=== PATIENT | female | born 1940 | race Caucasian/White ===

== ENCOUNTER → 2020-06-17 12:36 | Outpatient (CLI) | payer OTHER, SELFPAY ==
--- NOTE | ~2020-06-17 | MM_ITS ---
EXAMINATION: MM screening rubens BI w gabriela HISTORY: Screening mammogram TECHNIQUE: Craniocaudal and mediolateral oblique 3-D tomosynthesis images were obtained and synthetic 2-D images were generated. CAD analysis was submitted and interpreted. COMPARISON: 12/23/2018 bilateral digital screening mammogram BREAST PARENCHYMAL COMPOSITION: There are scattered areas of fibroglandular density FINDINGS: There is no evidence of suspicious mass, calcification, or architectural distortion to sugg est malignancy in either breast. There has been no suspicious interval change. IMPRESSION: 1. No mammographic evidence of malignancy. 2. Recommend routine screening mammography in one year. BI-RADS Category 1: Negative Reviewed, dictated and finalized at location A.
== END ==
PROVIDERS: PCP Internal Medicine; Visit Provider Internal Medicine
DX: Z12.31 Encounter for screening mammogram for malignant neoplasm of breast (principal)
CPT/HCPCS: 77063; 77067

== ENCOUNTER → 2020-08-09 09:45 | Outpatient (CLI) | payer OTHER, SELFPAY ==
--- NOTE | ~2020-08-09 | CT_ITS ---
EXAMINATION: CT chest wo con EXAM DATE: 08/09/2020 09:59 INDICATION: Pulmonary nodule. TECHNIQUE: Spiral CT of the chest without contrast. Axial, coronal and sagittal images were reviewe d. Coronal maximum intensity pixel images of chest reviewed. The dose-length product (DLP) for this examination was 82.07 mGy-cm. The exposure was tailored according to patient size (auto mA exposure control), and iterative reconstruction (ASIR) was used as additional dose reduction technique. Ther e is no prior study for comparison. FINDINGS: Mild to moderate centrilobular emphysema. Leg and there is pleural-based right lower lobe 4 x 8 mm noncalcified granuloma requiring no further follow-up. No suspicious pulmonary nodules. Ther e are no pleural or pericardial effusions. Tracheobronchial tree is patent. There is no mediastin al, hilar or axillary lymphadenopathy. There is no pneumothorax. Heart normal in size. There ar e sternotomy wires, and cardiac/coronary surgical changes. Correlate with prior history. There are c holecystectomy clips. There is thoracic spondylosis without osteoblastic or osteolytic lesions ident ified. IMPRESSION: 1. Right lower lobe granuloma. 2. Mild to moderate emphysema. Reviewed, dictated and finalized at location B. 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
== END ==
PROVIDERS: PCP Internal Medicine; Visit Provider Internal Medicine
DX: R91.1 Solitary pulmonary nodule (principal); J43.9 Emphysema, unspecified
CPT/HCPCS: 71250

== ENCOUNTER 2024-11-21 20:35 | Emergency (ER) | payer MEDICARE, SELFPAY ==
--- NOTE | ~2024-11-21 | CT_ITS ---
EXAMINATION: CT cervical spine wo con DATE: 11/21/2024 22:56 INDICATION: fall, hit head TECHNIQUE: Computed tomography (CT) of the cervical spine was performed without intravenous contrast. Automated exposure control and iterative reconstruction technique were employed. The dose-length pro duct was 146.70 mGy-cm. COMPARISON: None. FINDINGS: Vertebral Body Alignment: Intact. Craniocervical and atlantoaxial alignment: Moderate degenerative change. Alignment intact. Osseous structures/fracture: No evidence of a lytic or blastic process in the visualized spine. No e vidence of acute fracture. Cervical soft tissues: The paraspinal soft tissues planes are maintained. Moderate emphysematous stiles ges. Degenerative changes: Mild degenerative disc and facet changes, without severe neural foraminal or ce ntral canal narrowing. IMPRESSION: No acute fracture or traumatic malalignment in the cervical spine. Reviewed, dictated and finalized at location K. LY CONSUMER SCIENCE TEACHER
--- NOTE | ~2024-11-21 | CT_ITS ---
EXAMINATION: CT lumbar spine wo con DATE: 11/21/2024 22:58 INDICATION: back pain s/p fall . TECHNIQUE: Computed tomography (CT) of the lumbar spine was performed without intravenous contrast. A utomated exposure control and iterative reconstruction technique were employed. The dose-length produ ct was 796.95 mGy-cm. COMPARISON: CT abdomen pelvis 04/29/2018. FINDINGS: 5 nonrib-bearing lumbar-type vertebral bodies. Pedicles intact. 4 mm retrolisthesis at L5-S 1. Vertebral body heights preserved. Severe degenerative disc disease at all lumbar levels. Severe ce ntral canal stenosis at L4-5 secondary to degenerative disc, facet, and ligamentum change. Multilevel moderate bilateral neural foraminal narrowing secondary to degenerative changes. Status post cholecy stectomy. Simple left midpole cyst. Punctate nonobstructing left inferior pole calcification. Scatter ed diverticuli. IMPRESSION: No acute fracture or traumatic malalignment in the lumbar spine. Reviewed, dictated and finalized at location K. ENT DEVELOPMENT MANAGER
--- NOTE | ~2024-11-21 | CT_ITS ---
EXAMINATION: CT brain wo con DATE: 11/21/2024 22:55 INDICATION: fall, hit head . TECHNIQUE: Computed tomography (CT) of the head was performed without intravenous contrast. The mA wa s adjusted according to patient size. Iterative reconstruction technique was employed. The dose-lengt h product was 605.33 mGy-cm. COMPARISON: PET/CT 06/23/2018. FINDINGS: No acute intracranial hemorrhage or extra-axial fluid collection. Moderately dilated ventricles. No mass or herniation. No acute ischemic infarct. Unremarkable dural venous sinus attenuation. No acute osseous abnormality. Aerated secretions in the right sphenoid sinus, the remaining aerated spaces are clear. Moderate atrophy and mild chronic white matter change. Atherosclerotic intracranial calcification. Bi lateral lens replacements. IMPRESSION: Moderately dilated ventricular system, increased since the comparison study from 2017, may be seconda ry to atrophy or hydrocephalus (including normal pressure hydrocephalus). Reviewed, dictated and finalized at location K. MANAGER IMPRESSION: Moderately dilated ventricular system, increased since the comparison study fro 2017, may be secondary to atrophy or hydrocephalus (including normal pressure hydrocephalus).
[2024-11-21 20:37] VITALS: BP 163/64; PULSE 71; RESP 15; TEMP 36.5; O2SAT 100
[2024-11-21 21:20] VITALS: BP 162/77; PULSE 67; RESP 18; O2SAT 97
--- NOTE | 2024-11-21 22:09 | ED_ITS ---
HPI - Fall General Chief Complaint: Fall Stated Complaint: GLF, ARM, HIP, HEAD, NECK & BACK PAIN Time Seen by Provider: 11/21/24 21:22 History of Present Illness HPI Narrative: Patient is a 84-year-old female who presents to the ER after sustaining a fall at the nursing home facility where she lives. Her daughter reports she had been called group home 3 times today, the first two for agitation and the third because she fell. Patient's daughter reports she was told patient hit her head. She is not on blood thinners and did not lose consciousness. Patient has advanced dementia and is a poor historian. She endorses a headache, cervical spine pain, lumbar spine pain at time of examination. Patient denies any chest pain, abdominal pain, decreased range of motion, recent fevers. Her daughter reports they recently decided to consult with palliative care and are considering taking patient off all of her medications at home. Patient's daughter endorses a history high blood pressure. Related Data Allergies Allergy/AdvReac Type Severity Reaction Status Date / Time red yeast rice Allergy Intermediate DYSTONIA/ Verified 03/23/17 13:16 MUSCLE WEAKNESS [id number] Reductase Allergy Intermediate SEVERE Verified 03/23/17 13:16 Inhibitor (Fvofymv-Sjw-Uir DYSTONIA/ Reductase Inhibitor) MUSCLE WEAKNESS hydrocodone Allergy Mild hallucinati Verified 01/25/17 11:06 ons atorvastatin Allergy Unknown muscle pain Verified 01/25/17 11:50 Penicillins Allergy Unknown Diarrhea Verified 01/25/17 11:51 pravastatin Allergy Unknown muscle Verified 01/25/17 11:49 weakness rosuvastatin Allergy Unknown muscle Verified 01/25/17 11:48 weakness salmon oil Allergy Unknown muscle pain Verified 01/25/17 11:50 simvastatin Allergy Unknown muscle pain Verified 01/25/17 11:50 warfarin Allergy Unknown Verified 01/25/17 11:05 acetaminophen AdvReac Intermediate HALLUCINATE Verified 06/20/11 15:07 WARFARIN SODIUM Allergy Intermediate HIVES Uncoded 06/20/11 15:07 HYDROCODONE BIT AdvReac Intermediate HALLUCINATE Uncoded 06/20/11 15:07 Review of Systems Review of Systems: All systems reviewed & are unremarkable except as noted in HPI and below PMFSH Family History Family History Father Patient's father is , Onset Age: 44 Sibling Depression Cerebrovascular accident Family history of Parkinson's disease Family history of Alzheimer's disease Family history of dementia Mother Family history of dementia Family history of congestive heart failure Family history of cardiovascular disease Social History Social History Smoking status: Former smoker Smoking end date: 09/27/89 Alcohol intake: current Exam Narrative: GENERAL: Well appearing, well-nourished, non-toxic, in no acute distress. HEAD: Normocephalic, atraumatic. NECK: Supple. No adenopathy, no masses. + tenderness with palpation RESPIRATORY: Airway patent, respirations nonlabored. Clear to auscultation bilaterally, no rales, rhonchi, wheezing. CARDIOVASCULAR: Regular rate and rhythm without murmurs, rubs, or gallops. Peripheral pulses 2+ and equal bilaterally. ABDOMINAL: Soft, nontender, nondistended, no hepatosplenomegaly. Normoactive BS. MUSCULOSKELETAL: Moves all extremities. Strength/ROM intact without gross deformities. SKIN: Warm, dry, normal color. No rashes. NEURO: A&O X1. Speech clear. No ataxic movements. PSYCHIATRIC: Appropriate mood and affect. No agitation at time of examination. Course Vital Signs Vital signs: Vital Signs Temperature 36.5 C 11/21/24 20:37 Pulse Rate 71 11/21/24 20:37 Respiratory Rate 15 11/21/24 20:37 Blood Pressure 163/64 H 11/21/24 20:37 Pulse Oximetry 100 11/21/24 20:37 Oxygen Delivery Room Air 11/21/24 20:37 Temperature 36.5 C 11/21/24 20:37 Pulse Rate 67 11/21/24 21:20 Respiratory Rate 18 11/21/24 21:20 Blood Pressure 162/77 H 11/21/24 21:20 Pulse Oximetry 97 11/21/24 21:20 Oxygen Delivery Room Air 11/21/24 20:37 MDM - Fall MDM Narrative Medical decision making narrative: Patient is a 84-year-old female who presents to the ER after sustaining a fall at the nursing home facility where she lives. Her daughter reports she had been called group home 3 times today, the first two for agitation and the third because she fell. Patient's daughter reports she w as told patient hit her head after tripping over a laundry basket. She is not on blood thinners and did not lose consciousness. Patient has advanced dementia and is a poor historian. She endorses a headache, cervical spine pain, lumbar spine pain at time of examination. Patient denies any chest pain, abdominal pain, decreased range of motion, recent fevers. Her daughter reports they recently decided to consult with palliative care and are considering taking patient off all of her medications at home. Patient's daughter endorses a history high blood pressure. Labs Ordered: None necessary Imaging Ordered: CT lumbar spine, CT cervical spine, CT brain Medications Ordered: None necessary Results: Pt's head CT scan indicates Moderately dilated ventricular system, increased since the comparison study from 2017, may be secondary to atrophy or hydrocephalus (including normal pressure hydrocephalus). Pt's cervical spine CT scan indicates No acute fracture or traumatic malalignment in the cervical spine. Pt's lumbar spine CT scan indicates No acute fracture or traumatic malalignment in the lumbar spine. Diagnosis: fall without acute injury Patient Education/Shared MDM: Results shared with patient's family member. Her daughter was strongly advised to have pt follow-up with her PCP as soon as possible. She will be discharged home with no new prescriptions. Strict return precautions provided. Patient's daughter verbalized understanding is in agreement with plan. Vital signs stable at time of discharge. All questions answered. Differential Diagnosis Differential diagnosis: Likely syncope, compression fracture and concussion without loss of consciousness Imaging Data Attestation: I personally reviewed and interpreted this imaging study as follows: Radiologist's impression: Impressions Head CT 11/21/24 23:08 IMPRESSION: Moderately dilated ventricular system, increased since the comparison study from 2017, may be secondary to atrophy or hydrocephalus (including normal pressure hydrocephalus). Cervical Spine CT 11/21/24 23:13 IMPRESSION: No acute fracture or traumatic malalignment in the cervical spine. Lumbar Spine CT 11/21/24 23:16 IMPRESSION: No acute fracture or traumatic malalignment in the lumbar spine. Discharge Plan Discharge Clinical Impression: Concussion without loss of consciousness, Fall Patient Disposition: NH Retirement/Asst Living Condition: Stable Instructions: Antibiotic Form, Concussion (ED) Additional Instructions: Please return to the ER with any worsening symptoms. Follow-up with primary care provider in the next 2-3 days. Take all regularly scheduled medications as prescribed. Patient Language: Bolivian Follow-up/Referrals: UNKNOWN,DOCTOR [Primary Care Provider] - Stand Alone Forms: [facility] Discharge Time of Disposition: 00:17
--- OUTSIDE RECORDS SUMMARY | 2024-11-21 22:41 | XMS_ITS | Clinical Summary ---
Author Organization [facility] Address [address] [facility] [address] [facility] Attn: Epic Prelude ADT STELLA MABRY [address] Care Team Providers Care Installer Apprentice Name Role Phone Unavailable Primary Care Provider Unavailabl e Allergies Active Allergy Reactions Criticality Noted Date Comments Atorvastatin Muscle Pain Low 02/03/2016 Hydrocodone-Acetaminoph en Unknown 12/24/2010 Penicillins Diarrhea Low 05/07/2014 Pravastatin Other (See Comments) 12/24/2010 MYALGIAS Red Yeast Rice Other (See Comments) 12/24/2010 SEVERE MYALGIAS Rosuvastatin Other (See Comments) 05/05/2013 Muscle weakness/pain , Even on weekly dosing Simvastatin Other (See Comments) 12/24/2010 MYALGIAS Warfarin Unknown 12/24/2010 Medications potassium chloride (KLOR-CON) 10 mEq Extended Release tabletIndicati ons:Hypokalemi a Take 1 Tablet (10 mEq) by mouth daily with breakfast. 90 Tablet 0 7 Active DULoxetine (CYMBALTA) 60 mg Capsule, Delayed Release(E.C.) Take 1 Capsule (60 mg) by mouth daily. 90 Capsule 3 7 Active levothyroxine 75 mcg tablet Take 1 tablet by mouth daily 90 Tablet 0 7 Active cholecalcifero l, vitamin D3, 1,000 unit Take 1 Tablet (1,000 Units) by mouth daily. 6 Active omeprazole (PriLOSEC) 40 mg Capsule, Delayed Release(E.C.) Take 1 Capsule (40 mg) by mouth 2 times daily. 180 Capsule 3 6 Active atorvastatin (LIPITOR) 10 mg tablet Take 1 Tablet (10 mg) by mouth see administration instructions Will try to take 1 tab (10mg) every 2-4 weeks as tolerated--05/2016- taking once per month. 90 Tablet 1 6 Active ferrous sulfate (SLOW RELEASE IRON) 142 mg (45 mg iron) Tablet Sustained Release Take 1 Tablet (142 mg) by mouth every Wednesday, Wednesday, and Wednesday. 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 Perform formal swallow evaluation today Hypokalemia 06/03/2011 Legionella pneumonia 06/01/2011 Overview (01/23/2021): Initially left lower lobe involvement; associated with constitutional symptoms and fever. Also has hyponatremia, without white count elevation. Legionella antigen positive. 06/12/2011 Continue azithromycin to complete a 10 day course. Allergic rhinitis 12/24/2010 Hypothyroidism 12/24/2010 GERD (gastroesophageal reflux disease) 1 Depressive disorder 12/24/2010 Diverticulosis 12/24/2010 ULISES (obstructive sleep apnea)-pt stopped 01/201512/24/2010 Overview (01/23/2021): Continue night CPAP as tolerated DJD (degenerative joint disease) 12/24/2010 CAD (coronary artery disease)--[id number] 0 02/23/2003 Overview (01/23/2021): 01/27 - Coronary artery disease left main with patch angioplasty at [facility] 11/2007 - CABG X2 - SVG to Cx, IM to LAD - Dr. Holley.. Continue Coreg. History of tobacco use Overview (01/23/2021): for 33 years - quit 1989 Resolved Problems Problem Noted Date Diagnosed Date Resolved Date Well adult exam 05/07/2014 06/15/2016 Well adult exam 05/05/2013 05/07/2014 Constipation 06/06/2011 06/10/2011 Overview (01/22/2021): Still Has not had a BM. Lactulose/Reglan. Continue TF with oxepa as tolerated.. Anemia of critical illness 06/06/2011 0 05/07/2014 Overview (01/22/2021): No obvious bleeding. Currently stable No indication for transfusion yet unless Hb <7.5. Acute respiratory insufficiency 06/04/2011 06/13/2011 Overview (01/22/2021): Secondary to ARDS. DOI 06/04: for severe hypoxemia and failed NIPPV COUGHLIN: 06/10 CPAP support at night. O2 supplementation. ARDS (adult respiratory distress syndrome) 06/04/2011 06/13/2011 Overview (01/22/2021): Secondary to Legionella pneumonia. 06/12/2011 Successfully extubated 2 days ago Adequate diuresis. Discontinue Lasix Attempt to wean O2 as tolerated. Fever 06/03/2011 06/15/2011 Hyponatremia 06/01/2011 06/15/2011 HLD (hyperlipidemia) 12/24/2010 016 Immunizations Immunization Administration Dates Next Due (PREVNAR 13)(6 WKS UP) PNEUM OCOCCAL CONJUGATE (PCV13) 0.5 ML, IM 10/04/2015,06/16/2008 Influenza Seasonal Unspecifi ed Formulation IM 06/08/2012,06/25/2010,07/10/2008 Influenza Vaccine Quad Split 3+ Yrs Im 6 Influenza Vaccine Split 3+ Yrs IM 09/08/2013, Pneumococcal conjugate, unsp ecified formulation 08/19/2010 Family History Medical History Relation Name Comments Other Father Heart Disease Mother Relation Name Status Comments Father Mother Social History Tobacco Use Types Packs/Day Years Used Date Smoking Tobacco: Former Cigarettes Q uit: 12/24/1989 Smokeless Tobacco: Never Alcohol Use Standard Drinks/Week Comments Yes 0 (1 standard drink = 0.6 oz pur e alcohol) Comments Unknown Sex and Gender Information Value Date Recorded Sex Assigned at Not on file Legal 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 Gender Identity Not on file Sexual Orientation Not on file Last Filed Vital Signs Vital Sign Reading Time Taken Comments Blood Pressure 124/60 06/15/2016 1:44 PM CDT Pulse 76 06/15/2016 1:44 PM CDT Temperature 36.2 C (97.1 F) 01/07/2016 11:44 AM CDT Respiratory Rate 16 06/15/2016 1:44 PM CDT Oxygen Saturation - - Inhaled Oxygen Concentration - - Weight 75.4 kg (166 lb 3.2 oz) 06/15/2016 1:44 P M CDT Height 153 cm (5' 0.25 ) 06/15/2016 1:44 PM CDT Body Mass Index 32.19 06/15/2016 1:44 PM CDT Plan of Treatment Health Maintenance Due Date Last Done Comments COLORECTAL SCREENING 1960 DTAP/TDAP/TD VACCINES (1 - Tdap) 1961 ZOSTER VACCINE (1 of 2) 1992 PNEUMOCOCCAL VACCINE 65+ YEA RS (2 of 2 - PPSV23) 10/04/2016 10/04/2015, 08/19/2010, 06/16/2008 RSV VACCINE (60+ or ) (1 - 1-dose 75+ series) 2017 OSTEOPOROSIS SCREENING 03/26/2018 03/26/2015, 2011 INFLUENZA VACCINE (#1) 2024 6, 09/08/2013, 06/08/2012, Additional history exists Procedures Procedure Name Priority Date/Time Associated Diagnosis Comments XR DEXA BONE DENSITY AXIAL 1 OR MORE SITES Routine 03/26/2015 3:37 PM CDT Disorder of bone and cartilage from Last 3 Months or Most Recently Relevant to Health Maintenance Results * (ABNORMAL) XR DEXA BONE DENSITY AXIAL 1 OR MORE SITES (03/26/2015 3:37 PM CDT) Anatomical Region Laterality Modality Other Narrative 03/28/2015 4:38 PM CDT 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
--- OUTSIDE RECORDS SUMMARY | 2024-11-21 22:41 | XMS_ITS | Encounter Summary ---
Author Organization [facility] Address [address] [place] [address] Care Team Providers Care Facing Machine Operator Name Role Phone Rina Benavides MD Primary Care Provider [phone] Micheline Ricardo MD Unavailable [phone] Shea Mallory MD Unavailable [phone] Christian Delvalle MD Unavailable [phone] Encounter Details Date Type Department Care Team (Late st Contact Info) Description 12/25/2021 Abstract [facility] [id number] Yue Keys, RMA Social History Tobacco Use Types Packs/Day Years Used Date Smoking Tobacco: Former Cigarettes Q uit: 1989 Smokeless Tobacco: Never Alcohol Use Standard Drinks/Week Comments Yes 0 (1 standard drink = 0.6 oz pur e alcohol) socially Comments Unknown Sex and Gender Information Value Date Recorded Sex Assigned at Not on file Legal Sex Female 10:34 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 No / Unsure 12/24/2021 6:01 PM CDT documented as of this encounter Plan of Treatment Not on file documented as of this encounter Procedures Procedure Name Priority Date/Time Associated Diagnosis Comments BASIC METABOLIC PANEL Routine 10/22/2021 LIPID PANEL Routine 10/22/2021 TSH (OUTSIDE LAB) Routine 04/21/2021 COMPREHENSIVE METABOLIC PANEL Routine 04/21/2021 LIPID PANEL Routine 04/21/2021 CBC, AUTO, NO DIFF Routine 04/21/2021 documented in this encounter Results * LIPID PANEL (10/22/2021) CHOLESTEROL 249 HDL 82 TRIGLYCERIDES 110 CHOL/HDL RATIO 3.0 LDL (CALCULATED) 145 10/22/2021 us Doc [facility] Final Result * (ABNORMAL) BASIC METABOLIC PANEL (10/22/2021) SODIUM S/P/B 138 POTASSIUM S/P/B 4.4 CO2 29 CHLORIDE S/P/B 106 GLUCOSE 95 mg/dL CALCIUM S/P/B 9.9 BUN 14 CREATININE S/P/B 1.03(A) 0.5 - 1.0 EGFR AFR. AMER. >60 <=90 EGFR NON-AFR. AMER. 52 <=90 10/22/2021 us Doc [facility] Final Result * CBC, AUTO, NO DIFF (04/21/2021) WBC 7.84 RBC 4.58 HGB 12.6 HCT 41.6 MCV 90.8 MCH 27.5 MCHC 30.3 RDW 13.2 PLT 277 MPV 10.8 04/21/2021 us Doc [facility] Final Result * COMPREHENSIVE METABOLIC PANEL (04/21/2021) SODIUM S/P/B 137 POTASSIUM S/P/B 4.4 CO2 27 CHLORIDE S/P/B 105 GLUCOSE 89 mg/dL CALCIUM S/P/B 9.9 BUN 12 CREATININE S/P/B 1.00 0.5 - 1.0 EGFR AFR. AMER. >60 <=90 EGFR NON-AFR. AMER. 54 <=90 ALKALINE PHOSPHATASE S/P/B 100 ALT 10 AST 22 BILIRUBIN TOTAL S/P/B 0.4 ALBUMIN S/P/B 3.8 3.5 - 5.0 TOTAL PROTEIN S/P/B 6.4 04/21/2021 us [facility] Final Result * LIPID PANEL (04/21/2021) Pathologist [facility] CHOLESTEROL 266 HDL 64 TRIGLYCERIDES 206 CHOL/HDL RATIO 4.2 LDL (CALCULATED) 161 04/21/2021 us Doc [facility] Final Result * TSH (OUTSIDE LAB) (04/21/2021) Pathologist [facility] TSH 1.33 04/21/2021 us Doc [facility] LAB-OUTSIDE/ABSTRACTED Final Result documented in this encounter Visit Diagnoses Not on filedocumented in this encounter Additional Health Concerns Infection Onset Date Last Indicated Resolved Time COVID-19 Rule Out 03/03/2022 03/03/2022 03/04/2022 2:06 PM CDT COVID-19 Rule Out 02/06/2023 02/06/2023 02/06/2023 12:08 PM CDT documented as of this encounter Care Teams Facing Machine Operator Relationship Specialty Start Date End Date Rina Benavides MD [address] [place] [phone] PCP - General INTERNAL MEDICINE 10/24/20 Micheline Ricardo MD [place] [address] [place] [phone] (Work) Consulting Physician FAMILY PRACTICE 11/06/22 11/06/22 Shea Mallory MD [address] [address] Consulting Physician CARDIOVASCULAR DISEASE 12/04/22 Christian Delvalle MD [address] [address] Consulting Physician CLINICAL CARDIAC ELECTROPHYSIOLOGY 12/04/22 documented as of this encounter
--- OUTSIDE RECORDS SUMMARY | 2024-11-21 22:41 | XMS_ITS | Clinical Summary ---
Author Organization [facility] Address [address] [place] [address] Care Team Providers Care Director Telemetry Name Role Phone Rina Benavides MD Primary Care Provider + Allergies Active Allergy Reactions Criticality Noted Date Comments Simvastatin Other (See comments) Low 12/24/2010 MYALGIAS Medications aspirin 81 mg chewable tablet Take 1 tablet by mouth daily Active levothyroxine (SYNTHROID) 75 mcg tablet Take 75 mcg by mouth daily 10/24/2021 Active potassium chloride ER 10 mEq CR tablet Take 10 mEq by mouth daily 10/16/[address] (CYMBALTA) 30 mg capsule TAKE 1 CAPSULE BY MOUTH EVERY DAY IN THE EVENING 10/15/[address] (CYMBALTA) 60 mg capsule Take 1 tablet by mouth daily 12/31/2016 Active cholecalciferol (VITAMIN D-3) 25 mcg (1,000 unit) tablet Take 1,000 Units by mouth daily 06/15/2016 Active vit C-E-zinc gje-knbomg-isxa an ([facility]) 50 mg-15 unit- 4.5 mg-2.5 mg tablet,chewable Take 1 tablet by mouth daily 07/15/2021 Active Active Problems Problem Noted Date Diagnosed Date Foreign body in middle ear, right, initial encou nter 11/03/2021 Sensorineural hearing loss (SNHL) of both ears 0 11/03/2021 Surgical History Surgery Date Site/Laterality Comments HYSTERECTOMY ABDOMINOPLASTY GALLBLADDER SURGERY HEART SURGERY Medical History Medical History Date Comments Allergic rhinitis Heart disease COPD (chronic obstructive pulmonary disease) (HC C) GERD (gastroesophageal reflux disease) Thyroid disease HL (hearing loss) Family History Medical History Relation Name Comments Stroke Brother Heart disease Mother Aneurysm Sister Heart disease Sister Relation Name Status Comments Brother Mother Sister Social History Tobacco Use Types Packs/Day Years Used Date Smoking Tobacco: Former Smokeless Tobacco: Never Personal Safety Answer Date Recorded Getting School Help Needed Not on file 12/11 Comments Unknown Sex and Gender Information Value Date Recorded Sex Assigned at Not on file Legal Sex 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 Gender Identity Not on file Sexual Orientation Not on file Obstetrics History Last Filed Vital Signs Vital Sign Reading Time Taken Comments Blood Pressure - - Pulse - - Temperature 36.6 C (97.9 F) 11/03/2021 3:52 PM PRINT PRODUCTION MANAGER Respiratory Rate - - Oxygen Saturation - - Inhaled Oxygen Concentration - - Weight 63.5 kg (140 lb) 11/03/2021 3:52 PM PRINT PRODUCTION MANAGER Height 149.9 cm (4' 11 ) 11/03/2021 3:52 PM PRINT PRODUCTION MANAGER Body Mass Index 28.28 11/03/2021 3:52 PM PRINT PRODUCTION MANAGER Plan of Treatment Not on file Insurance Care Teams Director Telemetry Relationship Specialty Start Date End Date Rina Benavides MD PCP - General Internal Medicine 10/27/21
--- OUTSIDE RECORDS SUMMARY | 2024-11-21 22:41 | XMS_ITS | Encounter Summary ---
Author Organization [facility] Address [address] [place] [address] Care Team Providers Care Pulp Roller Name Role Phone Rina Benavides MD Primary Care Provider [phone] Micheline Ricardo MD Unavailable [phone] Shea Mallory MD Unavailable [phone] Christian Delvalle MD Unavailable [phone] Encounter Details Date Type Department Care Team (Late st Contact Info) Description 03/03/2022 Prep for Procedure [facility] One Day [facility] [place], [place] [id number] Christian Delvalle MD Three [facility]. 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 No / Unsure 03/05/2022 12:19 PM CDT documented as of this encounter Functional Status * RETIRED Are you deaf or do you have serious difficulty hearing Answer Date of Assessment Author Status No 01/14/2022 5:00 PM CDT Activ e * RETIRED Are you blind or do you have serious difficulty seeing, even when wearing glasses? Answer Date of Assessment Author Status No 01/14/2022 5:00 PM CDT Activ e * Do you have serious difficulty walking or climbing stairs? Answer Date of Assessment Author Status Yes 01/14/2022 5:00 PM CDT Lili Mcdonald R N Active * Do you have difficulty dressing or bathing? Answer Date of Assessment Author Status No 01/14/2022 5:00 PM CDT Lili Mcdonald R N Active * Because of a physical, mental, or emotional condition, do you have difficulty doing errands alone such as visiting a doctor's office or shopping? Answer Date of Assessment Author Status No 01/14/2022 5:00 PM CDT Lili Mcdonald R N Active documented as of this encounter Mental Status * Because of a physical, mental, or emotional condition, do you have serious difficulty concentrating, remembering, or making decisions? Answer Entry Date Author Status No 01/14/2022 5:00 PM CDT Lili Mcdonald R N Active documented in this encounter Plan of Treatment Not on file documented as of this encounter Visit Diagnoses Not on filedocumented in this encounter Additional Health Concerns Infection Onset Date Last Indicated Resolved Time COVID-19 Rule Out 03/03/2022 03/03/2022 03/04/2022 2:06 PM CDT COVID-19 Rule Out 02/06/2023 02/06/2023 02/06/2023 12:08 PM CDT documented as of this encounter Care Teams Pulp Roller Relationship Specialty Start Date End Date Rina Benavides MD [address] [place] [phone] PCP - General INTERNAL MEDICINE 10/24/20 Micheline Ricardo MD [address] [place] [address] [place] [address] [phone] (Work) Consulting Physician FAMILY PRACTICE 11/06/22 11/06/22 Shea Mallory MD [address] [address] Consulting Physician CARDIOVASCULAR DISEASE 12/04/22 hCristian Delvalle MD [address] [address] Consulting Physician CLINICAL CARDIAC ELECTROPHYSIOLOGY 12/04/22 documented as of this encounter
--- OUTSIDE RECORDS SUMMARY | 2024-11-21 22:41 | XMS_ITS | Encounter Summary ---
Author Organization [facility] Address [address] [place] [address] Care Team Providers Care Clinical Operations Leader Name Role Phone Rina Benavides MD Primary Care Provider [phone] Micheline Ricardo MD Unavailable [phone] Shea Mallory MD Unavailable [phone] Christian Delvalle MD Unavailable [phone] Encounter Details Date Type Department Care Team (Late st Contact Info) Description 11/22/2020 Abstract [facility] [phone] Ino Chun MA Social History Tobacco Use Types Packs/Day Years Used Date Smoking Tobacco: Former Cigarettes Q uit: 1989 Smokeless Tobacco: Never Alcohol Use Standard Drinks/Week Comments Yes 0 (1 standard drink = 0.6 oz pur e alcohol) socially Comments Unknown Sex and Gender Information Value Date Recorded Sex Assigned at Not on file 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 No / Unsure 11/18/2020 1:50 PM ELECTRIC SHIPYARD OPERATOR documented as of this encounter Plan of Treatment Not on file documented as of this encounter Procedures Procedure Name Priority Date/Time Associated Diagnosis Comments BASIC METABOLIC PANEL Routine 10/23/2020 THYROID STIM HORMONE TSH Routine 10/23/2020 CBC (OUTSIDE LAB) Routine 04/22/2020 COMPREHENSIVE METABOLIC PANEL Routine 04/22/2020 LIPID PANEL Routine 04/22/2020 THYROID STIM HORMONE TSH Routine 04/22/2020 COMPREHENSIVE METABOLIC PANEL Routine 08/05/2018 LIPID PANEL Routine 08/05/2018 documented in this encounter Results * THYROID STIM HORMONE, TSH (10/23/2020) TSH 1.27 10/23/2020 us Doc [facility] Abstract LABORATORY Final Result * BASIC METABOLIC PANEL (10/23/2020) SODIUM S/P/B 138 POTASSIUM S/P/B 4.7 CO2 28 CHLORIDE S/P/B 102 GLUCOSE 88 mg/dL CALCIUM S/P/B 10.0 BUN 12 CREATININE S/P/B 0.91 0.5 - 1.0 EGFR AFR. AMER. >60 <=90 EGFR NON-AFR. AMER. 60 <=90 10/23/2020 us Doc [facility] Abstract LABORATORY Final Result * CBC (OUTSIDE LAB) (04/22/2020) WBC 7.47 HGB 12.5 HCT 40.3 PLT 276 04/22/2020 us Doc [facility] Abstract LAB-OUTSIDE/ABSTRACTED Final Result * COMPREHENSIVE METABOLIC PANEL (04/22/2020) SODIUM S/P/B 137 POTASSIUM S/P/B 4.5 CO2 24 CHLORIDE S/P/B 104 GLUCOSE 85 mg/dL CALCIUM S/P/B 9.7 BUN 13 CREATININE S/P/B 0.87 0.5 - 1.0 EGFR AFR. AMER. >60 <=90 EGFR NON-AFR. AMER. >60 <=90 ALKALINE PHOSPHATASE S/P/B 108 ALT 11 AST 20 BILIRUBIN TOTAL S/P/B 0.3 ALBUMIN S/P/B 3.9 3.5 - 5.0 TOTAL PROTEIN S/P/B 6.5 04/22/2020 us Doc [facility] LABORAT[facility] Final Result * LIPID PANEL (04/22/2020) CHOLESTEROL 277 HDL 76 TRIGLYCERIDES 146 LDL (CALCULATED) 172 04/22/2020 us Doc [facility] LAB[facility]AT[facility] Final Result * THYROID STIM HORMONE, TSH (04/22/2020) TSH 0.98 04/22/2020 us Doc [facility] LABORATORY Final Result * LIPID PANEL (08/05/2018) CHOLESTEROL 158 HDL 82 TRIGLYCERIDES 97 LDL (CALCULATED) 69 08/05/2018 us Doc [facility] Abstract LABORATORY Final Result * COMPREHENSIVE METABOLIC PANEL (08/05/2018) SODIUM S/P/B 139 POTASSIUM S/P/B 4.4 CO2 27 CHLORIDE S/P/B 106 GLUCOSE 100 mg/dL CALCIUM S/P/B 9.7 BUN 9 CREATININE S/P/B 0.80 0.5 - 1.0 EGFR NON-AFR. AMER. >60 <=90 ALKALINE PHOSPHATASE S/P/B 105 ALT 19 AST 23 BILIRUBIN TOTAL S/P/B 0.4 ALBUMIN S/P/B 4.2 3.5 - 5.0 TOTAL PROTEIN S/P/B 7.0 08/05/2018 us Doc [facility] Abstract LABORATORY Final Result documented in this encounter Visit Diagnoses Not on filedocumented in this encounter Additional Health Concerns Infection Onset Date Last Indicated Resolved Time COVID-19 Rule Out 03/03/2022 03/03/2022 03/04/2022 2:06 PM CDT COVID-19 Rule Out 02/06/2023 02/06/2023 02/06/2023 12:08 PM CDT documented as of this encounter Care Teams Clinical Operations Leader Relationship Specialty Start Date End Date Rina Benavides MD [address] [place] [phone] PCP - General INTERNAL MEDICINE 10/24/20 Micheline Ricardo MD ONE [facility] [place] [address] [phone] (Work) Consulting Physician FAMILY PRACTICE 11/06/22 11/06/22 Shea Mallory MD Three [facility]. [address] [address] Consulting Physician CARDIOVASCULAR DISEASE 12/04/22 Christian Del[facility]le [facility] [address] [place] [phone] Consulting Physician CLINICAL CARDIAC ELECTROPHYSIOLOGY 12/04/22 documented as of this encounter
--- OUTSIDE RECORDS SUMMARY | 2024-11-21 22:41 | XMS_ITS | Encounter Summary ---
Author Organization [facility] Address [address] [place] [address] Care Team Providers Care Transformation Coach Name Role Phone Rina Benavides MD Primary Care Provider [phone] Shea Mallory MD Unavailable [phone] Christian Delvalle MD Unavailable [phone] Encounter Details Date Type Department Care Team (Late st Contact Info) Description 11/19/2022 Abstract [facility] [address] Ino Chun MA Social History Tobacco Use Types Packs/Day Years Used Date Smoking Tobacco: Former Cigarettes Q uit: 1989 Smokeless Tobacco: Never Alcohol Use Standard Drinks/Week Comments Yes 0 (1 standard drink = 0.6 oz pur e alcohol) socially Humiliation, Afraid, Rape, and Kick questionnair e Answer Date Recorded Within the last year, have y ou been afraid of your partner or ex-partner? No 11/08/2022 Within the last year, have y ou been humiliated or emotionally abused in other ways by your partner or ex-partner? No Within the last year, have y ou been kicked, hit, slapped, or otherwise physically hurt by your partner or ex-partner? No 11/08/2022 Within the last year, have y ou been raped or forced to have any kind of sexual activity by your partner or ex-partner? No 11/08/2022 Overall Financial Resource Strain (CARDIA) Answe r Date Recorded How hard is it for you to pa y for the very basics like food, housing, medical care, and heating? Not hard at all 11/08/2022 Hunger Vital Sign Answer Date Recorded Within the past 12 months, y ou worried that your food would run out before you got the money to buy more. Never true 11/08/19 23 Within the past 12 months, t he food you bought just didn't last and you didn't have money to get more. Never true 11/08/2022 PRAPARE - Transportation Answer Date Re corded In the past 12 months, has l ack of transportation kept you from medical appointments or from getting medications? No 10/28 In the past 12 months, has l ack of transportation kept you from meetings, work, or from getting things needed for daily living? No 11/08/2022 Housing Stability Vital Sign Answer Lucio e Recorded In the last 12 months, was t here a time when you were not able to pay the mortgage or rent on time? No 11/08/2022 In the last 12 months, how many places have you lived? 1 11/08/2022 In the last 12 months, was t here a time when you did not have a steady place to sleep or slept in a custodial (including now)? 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 Answer Date of Assessment Author Status No 11/08/2022 9:00 PM SET UP MECHANIC COIL WINDING MACHINES Activ e * Do you have serious difficulty walking or climbing stairs? Answer Date of Assessment Author Status No 11/08/2022 9:00 PM Saira Fontana RN Active * Do you have difficulty dressing or bathing? Answer Date of Assessment Author Status No 11/08/2022 9:00 PM Saira Fontana RN Active * Because of a physical, mental, or emotional condition, do you have difficulty doing errands alone such as visiting a doctor's office or shopping? Answer Date of Assessment Author Status No 11/08/2022 9:00 PM Saira Fontana RN Active documented as of this encounter Mental Status * Because of a physical, mental, or emotional condition, do you have serious difficulty concentrating, remembering, or making decisions? Answer Entry Date Author Status No 11/08/2022 9:00 PM Saira Fontana RN Active documented in this encounter Plan of Treatment Not on file documented as of this encounter Goals Goal Patient Goal Type Associated Problems Recent Progress Patient-Stated? Author Patient will return to prior living situation and remain independent in ADLs upon discharge from hospital Lifestyle No Key Cervantes RN documented as of this encounter Procedures Procedure Name Priority Date/Time Associated Diagnosis Comments CBC, MANUAL DIFF Routine 11/17/2022 documented in this encounter Results * CBC, MANUAL DIFF (11/17/2022) WBC 7.03 HGB 9.2 HCT 31.5 PLT 258 us Default History Genericprovider LABORATORY Edited Result - Final documented in this encounter Visit Diagnoses Not on filedocumented in this encounter Additional Health Concerns Infection Onset Date Last Indicated Resolved Time COVID-19 Rule Out 02/06/2023 02/06/2023 02/06/2023 12:08 PM CDT documented as of this encounter Care Teams Transformation Coach Relationship Specialty Start Date End Date Rina Benavides MD [address] [place] [phone] PCP - General INTERNAL MEDICINE 10/24/20 [facility] [address] [place] [address] Consulting Physician CARDIOVASCULAR DISEASE 12/04/22 Christian Delvalle MD [address] [facility] [address] [place] [address] Consulting Physician CLINICAL CARDIAC ELECTROPHYSIOLOGY 12/04/22 documented as of this encounter
--- OUTSIDE RECORDS SUMMARY | 2024-11-21 22:41 | XMS_ITS | Referral Summary ---
Author Organization [facility] [employer] Address [address] [place] [address] Care Team Providers Care Manager Program Management Name Role Phone Rina Benavides MD Primary [...] by mouth daily 06/15/2016 Active vit C-E-zinc oyj-wqwdbo-iuvr an [facility] 50 mg-15 unit- 4.5 mg-2.5 mg tablet,chewable Take 1 tablet by mouth daily 07/15/2021 Active Active Problems Problem Noted Date Diagnosed Date Foreign body in middle ear, right, initial encou nter 11/03/2021 Sensorineural hearing loss (SNHL) of both ears 0 11/03/2021 Social History Tobacco Use Types Packs/Day Years Used Date Smoking Tobacco: Former Smokeless Tobacco: Never Personal Safety Answer Date Recorded Getting School Help Needed Not on file 12/11 Comments Unknown Sex and Gender Information Value Date Recorded Sex Assigned at Not on file Legal Sex Female 10:25 AM MEDICAL RECEPTION Gender Identity Not on file Sexual Orientation Not on file Last Filed Vital Signs Vital Sign Reading Time Taken Comments Blood Pressure - - Pulse - - Temperature 36.6 C (97.9 F) 11/03/2021 3:52 PM MEDICAL RECEPTION Respiratory Rate - - Oxygen Saturation - - Inhaled Oxygen Concentration - - Weight 63.5 kg (140 lb) 11/03/2021 3:52 PM MEDICAL RECEPTION Height 149.9 cm (4' 11 ) 11/03/2021 3:52 PM MEDICAL RECEPTION Body Mass Index 28.28 11/03/2021 3:52 PM MEDICAL RECEPTION Plan of Treatment Not on file Insurance Care Teams Manager Program Management Relationship Specialty Start Date End Date Rina Benavides MD PCP - General Internal Medicine 10/27/21
--- OUTSIDE RECORDS SUMMARY | 2024-11-21 22:41 | XMS_ITS | Encounter Summary ---
Author Organization [facility] Address [address] [place] [address] Care Team Providers Care Loom Technician Name Role Phone Rina Benavides MD Primary Care Provider [phone] Shea Mallory MD Unavailable [phone] Christian Delvalle MD Unavailable [phone] Encounter Details Date Type Department Care Team (Late st Contact Info) Description 11/19/2022 Abstract [facility]-[address] [address] Ino Chun MA Social History Tobacco Use [...] place to sleep or slept in a assisted (including now)? 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 No / Unsure 11/19/2022 11:50 AM CHEF ASSISTANT documented as of this encounter Functional Status * RETIRED Are you deaf or do you have serious difficulty hearing Answer Date of Assessment Author Status No 11/08/2022 9:00 PM CHEF ASSISTANT Activ e * RETIRED Are you blind or do you have serious difficulty seeing, even when wearing glasses? Answer Date of Assessment Author Status No 11/08/2022 9:00 PM CHEF ASSISTANT Activ e * Do you have serious [...] Associated Diagnosis Comments BASIC METABOLIC PANEL Routine 11/17/2022 documented in this encounter Results * BASIC METABOLIC PANEL (11/17/2022) SODIUM S/P/B 138 POTASSIUM S/P/B 4.4 CO2 23 CHLORIDE S/P/B 109 GLUCOSE 105 mg/dL CALCIUM S/P/B 8.8 BUN 10 CREATININE S/P/B 0.98 0.5 - 1.0 EGFR NON-AFR. AMER. 58 <=90 11/17/2022 us Default History Genericprovider LABORATORY Edited Result - Final documented in this encounter Visit Diagnoses Not on filedocumented in this encounter Additional Health Concerns Infection Onset Date Last Indicated Resolved Time COVID-19 Rule Out 02/06/2023 02/06/2023 02/06/2023 12:08 PM CDT documented as of this encounter Care Teams Loom Technician Relationship Specialty Start Date End Date Rina Benavides MD [address] [place] [phone] PCP - General INTERNAL MEDICINE 10/24/20 Shea Mallory MD [address] [phone] Consulting Physician CARDIOVASCULAR DISEASE 12/04/22 Christian Delvalle MD [address] [phone] Consulting Physician CLINICAL CARDIAC ELECTROPHYSIOLOGY 12/04/22 documented as of this encounter
--- OUTSIDE RECORDS SUMMARY | 2024-11-21 22:41 | XMS_ITS | Clinical Summary ---
Author Organization [facility] Address [address] [place] [id number] Care Team Providers Care Senior Procurement Specialist Name Role Phone Rina Benavides MD Primary Care Provider [phone] Shea Mallory MD Unavailable [phone] Christian Delvalle MD Unavailable [phone] Allergies Active Allergy Reactions Criticality Noted Date Comments 5-Alpha Reductase Inhibitors Myalgias High 04/22/2020 Atorvastatin Myalgias Low 02/03/2016 Apixaban Other (see comment) 04/14/2022 Swollen veins in hands Hydrocodone Unknown 03/06/2022 Isosorbide Nitrate Nausea Only 05/15/2022 Decreased appetite Monascus Purpureus Went Yeast Other (see comment) 12/24/2010 SEVERE MYALGIas Penicillins Diarrhea Low 05/07/2014 Pravastatin Myalgias 12/24/2010 Rosuvastatin Other (see comment) 05/05/2013 Muscle weakness/pain , Even on weekly dosing Simvastatin Myalgias Low 12/24/2010 Statins Joint Pain,Leg Pain,Memory Loss 05/12/2022 Medications levothyroxine 75 MCG tabletIndicatio ns:Hypothyroidi sm Take 1 tablet (75 mcg total) by mouth daily. Indications: Underactive Thyroid 1 Active DULoxetine 60 MG capsuleIndicati ons:Depression Take 1 capsule (60 mg total) by mouth daily. Indications: Depression 0 Active potassium chloride CR 10 MEQ Tab CR tabletIndicatio ns:Vitamin Deficiency Take 1 tablet (10 mEq total) by mouth daily. Indications: Vitamin Deficiency 1 Active aspirin EC 81 MG tabletIndicatio ns:Anticoagulan t Therapy Take 1 tablet (81 mg total) by mouth daily. Indications: Anticoagulant Therapy Active Cyanocobalamin (VITAMIN B-12) 2500 MCG SL TabIndications: Vitamin Deficiency Place 1 tablet under the tongue daily. Indications: Vitamin Deficiency Active Multiple Vitamins-Minera ls (OCUVITE OR)Indications: Vitamin Deficiency Take 1 tablet by mouth daily. Indications: Vitamin Deficiency Active fenofibrate 54 MG tabletIndicatio ns:Hyperlipidem ia Take 1 tablet (54 mg total) by mouth daily with breakfast. Indications: High Amount of Fats in the Blood 2 Active ANORO ELLIPTA 62.5-25 MCG/INH inhalerIndicati ons:COPD exacerbation, complicated Inhale 1 puff into the lungs daily as needed. Indications: COPD exacerbation, complicated 1 Active acetaminophen (TYLENOL) 500 MG tabletIndicatio ns:Pain Take 1 tablet (500 mg total) by mouth every 4 (four) hours as needed. Indications: Pain 3 Active metoprolol succinate ER (TOPROL-XL) 25 MG 24 hr tabletIndicatio ns:Hypertension TAKE 1 TABLET (25 MG TOTAL) BY MOUTH DAILY. INDICATIONS: HIGH BLOOD PRESSURE DISORDER 90 tablet 4 Active Active Problems Problem Noted Date Diagnosed Date Bilateral carotid artery stenosis 04/06/2023 Cardiac pacemaker in situ 02/25/2023 Vertigo 02/06/2023 Atrial fibrillation ([facility]) 12/08/2022 Status cardiac pacemaker 11/12/2022 Overview (11/18/2022): RUEL JUAREZ PACEMAKER IMPLANTED 11/11/22 FOR SSS SSS (sick sinus syndrome) ([facility]) 10/28 Overview (11/18/2022): RUEL JUAREZ PACEMAKER IMPLANTED 11/11/22 FOR SSS Generalized weakness 11/06/2022 Symptomatic anemia 11/06/2022 Dilatation of aorta 11/06/2022 Interstitial lung disease ([facility]) 10/28 Hypertensive heart and kidney disease 04/28/2022 PAF (paroxysmal atrial fibrillation) ([facility] S/HCC) 01/14/2022 History of tobacco use 01/14/2022 Overview (01/14/2022): for 33 years - quit 1989 for 33 years - quit 1989 Sensorineural hearing loss (SNHL) of both ears 0 11/03/2021 Foreign body in middle ear, right, initial encou nter 11/03/2021 Hypertensive heart and chron ic kidney disease stage 3 ([facility]) 04/22/2021 Mild aortic stenosis 12/16/2020 Moderate tricuspid regurgitation 12/16/2020 Gastro-esophageal reflux disease with esophagiti s 04/22/2020 S/P dilatation of esophageal stricture 0 Bronchiectasis ([facility]) 08/17/2019 Dermoid inclusion cyst 01/15/2015 Iron deficiency anemia 05/02/2012 Nutrition disorder 06/11/2011 Overview (01/14/2022): Failed swallow evaluation yesterday. Perform formal swallow evaluation today Failed swallow evaluation yesterday. Perform formal swallow evaluation today Depressive disorder 12/24/2010 DJD (degenerative joint disease) 12/24/2010 Diverticulosis 12/24/2010 Hypothyroidism Moderate major depression ([facility]) COPD (chronic obstructive pu lmonary disease) ([facility]) Aortic atherosclerosis CAD (coronary artery disease) PVD (peripheral vascular disease) Pulmonary fibrosis ([facility]) GERD (gastroesophageal reflux disease) Essential hypertension Dyslipidemia Resolved Problems Problem Noted Date Diagnosed Date Resolved Date Anemia 11/06/2022 11/06/2022 New onset atrial fibrillatio n ([facility]) 01/16/2022 03/18/2023 Encounters Date Type Department Care Team Description 11/15/2024 Travel 11/12/2024 2:10 PM RODEO RIDER Allied Health/[facility]urse [facility] [address] [place] [address] Shea Mallory MD Remote Device Check 10/10/2024 Telephone [facility] [address] [place] [address] Karen Armando, dermatologist managing partner 10/06/2024 Telephone [facility] [address] [place] [address] Yue Keys, A Referral 09/25/2024 Telephone [facility] [address] [place] [address] Jesús Couch MD Appointment Request from Last 3 Months Immunizations Name Administration Dates Next Due Dt (1-<7 Y.O.) 08/22/1997 Influenza (Generic) 09/08/2013, 2,09/24/2011,2009,07/10/2008,07/03/1997,07/24/1996 Influenza Adult (Generic) 07/11/2017,06/15/2016 Meningcoccal Group B (Bexser o)(aka Meningitis) 09/27/2014 Pneumococcal (Generic) 08/19/2010 Pneumococcal (Pneumovax 23) 04/22/2020 Pneumococcal (Prevnar 13) 12/20/2018,10/04/2015, 06/16/2008 Family History Medical History Relation Comments Stroke Brother 1 Stroke Maternal Grandfather Heart Attack Maternal Grandmother Aneurysm Mother Heart Mother Aneurysm Sister 1 Heart Attack Sister 2 pacemaker Sister 4 Relation Status Comments Brother 1 (Age 70) Brother 2 (Age 70) Father (Age 59) Maternal Grandfather Maternal Grandmother Mother (Age 80) Sister 1 (Age 50) Sister 2 Sister 3 Sister 4 Alive Sister 5 Alive Sister 6 Alive Sister 7 Alive Social History Tobacco Use Types Packs/Day Years Used Date Smoking Tobacco: Former Cigarettes 1 20 1 970 - 1989 Smokeless Tobacco: Never Tobacco Cessation:Counseling Given: Not Answered Alcohol Use Standard Drinks/Week Comments Yes 0 (1 standard drink = 0.6 oz pur e alcohol) 1 glass wine rarely OASIS D0700: Social Isolation Answer Da te Recorded Frequency of experiencing loneliness or isolatio n Rarely 02/25/2023 OASIS A1250: Transportation Answer Date Recorded Lack of Transportation (Medical) No 02/25/2023 Lack of Transportation (Non-Medical) No 02/25/2023 Patient Unable or Declines to Respond No 02/25/2023 OASIS B1300: Health Literacy Answer Lucio e Recorded Frequency of needing help to read materials from doctor or pharmacy Sometimes 02/25/2023 Humiliation, Afraid, Rape, and Kick questionnair e Answer Date Recorded Within the last year, have y ou been afraid of your partner or ex-partner? Patient declined 02/06/2023 Within the last year, have y ou been humiliated or emotionally abused in other ways by your partner or ex-partner? Patient declined 02/06/2023 Within the last year, have y ou been kicked, hit, slapped, or otherwise physically hurt by your partner or ex-partner? Patient declined 02/06/2023 Within the last year, have y ou been raped or forced to have any kind of sexual activity by your partner or ex-partner? Patient declined 02/06/2023 Social Connection and Isolation Panel [NHANES] A nswer Date Recorded In a typical week, how many times do you talk on the phone with family, friends, or neighbors? Patient declined 02/06/2023 How often do you get togethe r with friends or relatives? Patient declined 02/06/2023 How often do you attend orthodoxy or protestant serv ices? Patient declined 02/06/2023 Do you belong to any clubs o r organizations such as orthodoxy groups, unions, fraternal or athletic groups, or school groups? Patient declined 02/06/2023 How often do you attend meet ings of the clubs or organizations you belong to? Patient declined 02/06/2023 Are you , , di vorced, , never , or living with a partner? Patient declined 02/06/2023 AUDIT-C Answer Date Recorded Q1: How often do you have a drink containing alc ohol? Patient declined 02/06/2023 Q2: How many drinks containi ng alcohol do you have on a typical day when you are drinking? Patient declined 02/06/2023 Q3: How often do you have si x or more drinks on one occasion? Patient declined 02/06/2023 Overall Financial Resource Strain (CARDIA) Answe r Date Recorded How hard is it for you to pa y for the very basics like food, housing, medical care, and heating? Patient declined 02/06/2023 [facility] - Occupational Stress Questionnaire Answer Date Recorded Do you feel stress - tense, restless, nervous, or anxious, or unable to sleep at night because your mind is troubled all the time - these days? Patient declined 02/06/2023 Exercise Vital Sign Answer Date Recorde d On average, how many days pe r week do you engage in moderate to strenuous exercise (like a brisk walk)? Patient declined On average, how many minutes do you engage in exercise at this level? Patient declined 02/06/2023 Hunger Vital Sign Answer Date Recorded Within the past 12 months, y ou worried that your food would run out before you got the money to buy more. Patient declined Within the past 12 months, t he food you bought just didn't last and you didn't have money to get more. Patient declined PRAPARE - Transportation Answer Date Re corded In the past 12 months, has l ack of transportation kept you from medical appointments or from getting medications? Patient declined 02/06/2023 In the past 12 months, has l ack of transportation kept you from meetings, work, or from getting things needed for daily living? Patient declined 02/06/2023 Housing Stability Vital Sign Answer Lucio e Recorded In the last 12 months, was t here a time when you were not able to pay the mortgage or rent on time? Patient refused 02/07/20 23 In the last 12 months, how many places have you lived? 1 02/06/2023 In the last 12 months, was t here a time when you did not have a steady place to sleep or slept in a [place] [facility] [place] facility (including now)? Patient refused 02/06/2023 Comments Unknown Sex and Gender Information Value Date Recorded Sex Assigned at Not on file Legal Sex Female 10:34 AM RODEO RIDER Gender Identity Not on file Sexual Orientation Not on file Last Filed Vital Signs Vital Sign Reading Time Taken Comments Blood Pressure 128/74 05/01/2024 11:43 AM CDT Pulse 76 05/01/2024 11:43 AM CDT Temperature 36.7 C (98.1 F) 04/04/2024 9:05 AM CDT Respiratory Rate 17 04/04/2024 1:45 PM CDT Oxygen Saturation 99% 05/01/2024 11:43 AM CDT Inhaled Oxygen Concentration - - Weight 62.1 kg (137 lb) 05/01/2024 11:43 AM CDT Height 149.9 cm (4' 11 ) 05/01/2024 11:43 AM CDT Body Mass Index 27.67 05/01/2024 11:43 AM CDT Plan of Treatment Health Maintenance Due Date Last Done Comments Zoster Vaccines (1 of 2) 1992 DTaP, Tdap and Td Vaccines (1 - Tdap) 08/23/1997 08/22/1997 Annual Medicare Wellness Visit 2007 RSV Immunization or 60+ Years (1 - 1-dose 75+ series) 2017 ASCVD LDL 02/07/2024 02/06/2023, 09/28, 04/21/2021, Additional history exists COVID-19 Vaccine ( - season) 2024 Influenza Adult (#1) 2024 07/11/2017, 06/15/2016, 09/08/2013, Additional history exists Meningococcal B Vaccine Aged Out 09/27/2014 No l onger eligible based on patient's age to complete this topic Dexa Scan (General) Completed 03/26/2015, 03/26/2015, 03/21/2012 Pneumococcal Vaccine: 65+ Years Completed 04/22/2020, 12/20/2018, 10/04/2015, Additional history exists Meningococcal Vaccine Aged Out No rustam husam eligible based on patient's age to complete this topic RSV Immunizations Under 20 Months Aged Out No longer eligible based on patient's age to complete this topic Goals Goal Patient Goal Type Associated Problems Recent Progress Patient-Stated? Author Patient will return to prior living situation and remain independent in ADLs upon discharge from hospital Lifestyle No Key Cervantes RN Medical Devices Implanted Type Area Head Machinist Device Identifier Shelf Expiration Date Model / Serial / Lot Watchman Flx 24mm Closure Device- 023 Implanted:Qty : 1 on 12/08/2022 by Francisco Young MD Closure Device Left: [employer] [id number] 08/17/2025 [id number] / / [id number] Rv Lead Implant-2022 Implanted:Qty : 1 on 11/11/2022 by Christian Delvalle MD Lead Implant Right: Ventricle [employer] [id number] 06/23/2024 5076-52 / [id number] / Description:SEPTUM Ra Lead Implant-2022 Implanted:Qty : 1 on 11/11/2022 by Christian Delvalle MD Lead Implant Right: Atrium [employer] [id number] 08/25/2024 5076-45 / [id number] / Description:APPENDAGE Dual Chamber Pacemaker (Medtronic)- Implanted:Qty : 1 on 11/11/2022 by Christian Delvalle MD Pacemaker Left: Chest [employer] [id number] 04/09/2024 [id number] / [id number] / Description:MRI conditional system per Medtronic - 02/08/2023 Procedures Procedure Name Priority Date/Time Associated Diagnosis Comments LIPID PANEL Routine 02/06/2023 3:36 AM CDT from Last 3 Months or Most Recently Relevant to Health Maintenance Results * (ABNORMAL) LIPID PANEL (02/06/2023 3:36 AM CDT) CHOLESTEROL 216(H) <200 MG/DL 02/06/2023 6:19 AM CDT [facility] TRIGLYCERIDES 113 <150 MG/DL 02/06/2023 6:19 AM CDT [facility] HDL 72 >40.0 MG/DL 02/06/2023 6:19 AM CDT [facility] LDL (CALCULATED) 121(H) <100 MG/DL 02/06/2023 6:19 AM CDT [facility] NON HDL CHOLESTEROL 144(H) <130 MG/DL 02/06/2023 6:19 AM CDT [facility] CHOL/HDL RATIO 3.0 0.0 - 4.5 02/06/2023 6:19 AM CDT [facility] VLDL CALCULATION 23 5 - 55 MG/DL 02/06/2023 6:19 AM CDT [facility] LIPID INTERPRETATION 02/06/2023 6:19 AM CDT [facility] Comment: NIH CONCENSUS REPORT RECOMMENDATIONS: ADULT CHILD LOW RISK: CHOLESTEROL <200 <170 TRIGLYCERIDE <150 --- HDL >=60 --- LDL <100 <110 BORDERLINE: CHOLESTEROL 200-239 170-199 TRIGLYCERIDE 150-199 --- HDL 40-59 --- LDL 100-159 110-129 HIGH RISK: CHOLESTEROL >=240 >=200 TRIGLYCERIDE >=200 --- HDL <40 --- LDL >=160 >=130 02/06/2023 3:36 AM CDT Shanti Fair DO LABORATORY Final Result [facility] [address] [place] [address], from Last 3 Months or Most Recently Relevant to Health Maintenance Insurance [employer] Advance Directives Documents on File Type Date Recorded Patient Fitting Room Checker Expl anation Advance Directives and Living Will 02/10/2023 1:58 PM [employer] 04/02/2015 * Full Code (Latest Code Status on File) Date Activated Date Inactivated Comments 02/10/2023 3:39 PM 04/04/2024 8:31 AM * Full Code Date Activated Date Inactivated Comments 02/10/2023 10:56 AM 02/10/2023 3:38 PM * Full Code Date Activated Date Inactivated Comments 02/06/2023 5:52 AM 02/09/2023 3:49 PM * Full Code Date Activated Date Inactivated Comments 12/08/2022 11:36 AM 12/08/2022 8:18 PM * Full Code Date Activated Date Inactivated Comments 11/11/2022 11:33 AM 11/13/2022 4:19 PM Care Teams Senior Procurement Specialist Relationship Specialty Start Date End Date Rina Benavides MD [address] [place] [phone] PCP - General INTERNAL MEDICINE 10/24/20 Shea Mallory MD [address] [address] Consulting Physician CARDIOVASCULAR DISEASE 12/04/22 Christian Delvalle MD [address] [id number] Consulting Physician CLINICAL CARDIAC ELECTROPHYSIOLOGY 12/04/22
[2024-11-21 23:00] VITALS: BP 159/89; PULSE 75; RESP 20; O2SAT 99
[2024-11-22 01:20] VITALS: BP 143/84; PULSE 68; RESP 19; O2SAT 98
--- NOTE | 2024-11-22 03:31 | ECG_ITS ---
Test Date: 2024-11-22 03:31:45 Measurements Intervals [place] Rate: 99 P: 0 FL: 0 QRS: 65 QRSD: 113 T: 127 QT: 313 QTc: 403 Interpretive Statements ATRIAL FLUTTER/TACHYCARDIA INTRAVENTRICULAR CONDUCTION DELAY DELAYED PRECORDIAL R/S TRANSITION BORDERLINE ST-T WAVE ABNORMALITY- ANTEROLAT/HIGH LAT LEADS BASELINE ARTIFACT- I, II, III, AVR, AVL, V1 ABNORMAL ECG No previous ECG available for comparison Electronically Signed On 11-22-2024 10:19:38 CHEMIST ASSISTANT by Ralph Serrano D.O.
[2024-11-22 03:45] VITALS: BP 132/83; PULSE 79; RESP 15; O2SAT 99
[2024-11-22 07:19] VITALS: BP 115/75; PULSE 65; RESP 19; O2SAT 100
== END 2024-11-22 07:21 ==
PROVIDERS: Emergency Provider Registered Nurse
DX: S06.0X0A Concussion without loss of consciousness, initial encounter (principal); F03.90 Unspecified dementia, unspecified severity, without behavioral disturbance, psychotic disturbance, mood disturbance, and anxiety; I10 Essential (primary) hypertension; Z87.891 Personal history of nicotine dependence; R93.0 Abnormal findings on diagnostic imaging of skull and head, not elsewhere classified; W18.09XA Striking against other object with subsequent fall, initial encounter; I48.92 Unspecified atrial flutter; R00.0 Tachycardia, unspecified; I45.9 Conduction disorder, unspecified; R94.31 Abnormal electrocardiogram [ECG] [EKG]
CPT/HCPCS: 70450; 72125; 72131; 93005; 99284

== ENCOUNTER 2024-11-22 23:29 | Emergency (ER) | payer MEDICARE, SELFPAY ==
--- NOTE | 2024-11-22 23:36 | ED.FALL ---
HPI - Fall General Chief Complaint: Fall Stated Complaint: GLF, STRUCK BACK OF HEAD Time Seen by Provider: 11/22/24 23:30 Source: patient and EMS Mode of arrival: EMS Limitations: dementia History of Present Illness HPI Narrative: This is a 84-year-old female with PMH of dementia presenting to the ED via EMS for chief complaint of ground level fall tonight. Patient is a poor historian overall with advanced dementia. She is able to tell me that she fell tonight but is unsure of what happened. She reports some pain to the back of the head and feels that she likely hit her head there. Denies neck pain or any other site of injury. According to chart review patient was here last night for the same complaint of ground level fall and was able to be discharged after negative CT imaging of the head and neck. Patient has recently been started on palliative care. Related Data Allergies Allergy/AdvReac Type Severity Reaction Status Date / Time red yeast rice Allergy Intermediate DYSTONIA/ Verified 03/23/17 13:16 MUSCLE WEAKNESS Bvdezlw-HFF-BbG Reductase Allergy Intermediate SEVERE Verified 03/23/17 13:16 Inhibitor (Bqvrnmo-Xmr-Jgw DYSTONIA/ Reductase Inhibitor) MUSCLE WEAKNESS hydrocodone Allergy Mild hallucinati Verified 01/25/17 11:06 ons atorvastatin Allergy Unknown muscle pain Verified 01/25/17 11:50 Penicillins Allergy Unknown Diarrhea Verified 01/25/17 11:51 pravastatin Allergy Unknown muscle Verified 01/25/17 11:49 weakness rosuvastatin Allergy Unknown muscle Verified 01/25/17 11:48 weakness salmon oil Allergy Unknown muscle pain Verified 01/25/17 11:50 simvastatin Allergy Unknown muscle pain Verified 01/25/17 11:50 warfarin Allergy Unknown Verified 01/25/17 11:05 acetaminophen AdvReac Intermediate HALLUCINATE Verified 06/20/11 15:07 WARFARIN SODIUM Allergy Intermediate HIVES Uncoded 06/20/11 15:07 HYDROCODONE BIT AdvReac Intermediate HALLUCINATE Uncoded 06/20/11 15:07 Review of Systems Review of Systems: All systems as dictated in HPI FORMERLY [facility], [facility] Family History Family History Father Patient's father is , Onset Age: 44 Sibling Depression Cerebrovascular accident Family history of Parkinson's disease Family history of Alzheimer's disease Family history of dementia Mother Family history of dementia Family history of congestive heart failure Family history of cardiovascular disease Social History Social History Smoking status: Former smoker Smoking end date: 09/27/89 Alcohol intake: current Exam Narrative: GENERAL: Well-appearing, well-nourished, and in no acute distress. HEAD: Normocephalic, atraumatic. EYES: PERRLA and EOMI. ENT: Nares clear, no rhinorrhea or epistaxis. Mucous membranes moist. Oropharynx without tonsillar hypertrophy exudate or other lesions. NECK: Supple. No adenopathy or masses. CHEST: No respiratory distress. Clear to auscultation. No wheezes rales or rhonchi HEART: Regular rate and rhythm. No murmur heard. Normal peripheral pulses. ABDOMEN: Soft, nontender, nondistended, normal active bowel sounds. MSK: Normal range of motion. No edema. SKIN: Warm, dry, no rash. No bruising. No lacerations or abrasions. NEURO: Alert and oriented x1, at baseline. No focal deficits. Moves all 4 extremities spontaneously. Follows commands and answer yes and no questions. PSYCH: Normal mood and affect. Course Course Emergency Course: We were able to get in contact with patient's daughter again rola. She is declining any further workup regarding this additional fall. She is aware that the patient had another ground level the longterm. She again advised that the patient is on palliative care and they do not want any metabolic workup or imaging today. They would like her to be sent back to longterm. Vital Signs Vital signs: Vital Signs Temperature 97.6 F 11/22/24 23:49 Pulse Rate 76 11/22/24 23:49 Respiratory Rate 16 11/22/24 23:49 Blood Pressure 129/58 L 11/22/24 23:49 Pulse Oximetry 96 11/22/24 23:49 Temperature 97.6 F 11/22/24 23:49 Pulse Rate 76 11/22/24 23:49 Respiratory Rate 16 11/22/24 23:49 Blood Pressure 129/58 L 11/22/24 23:49 Pulse Oximetry 96 11/22/24 23:49 Discharge Plan Discharge Clinical Impression: Fall Patient Disposition: NH Long Term/Asst Living Condition: Stable Instructions: Antibiotic Form Patient Language: Pashto Follow-up/Referrals: UNKNOWN,DOCTOR [Primary Care Provider] -
--- OUTSIDE RECORDS SUMMARY | 2024-11-22 23:37 | XMS_ITS | Encounter Summary ---
Author Organization [facility] Address [address] [place] [address] Care Team Providers Care Human Resources Receptionist Name Role Phone Rina Benavides MD Primary Care Provider [phone] Shea Mallory MD Unavailable [phone] Christian Delvalle MD Unavailable [phone] Encounter Details Date Type Department Care Team (Late st Contact Info) Description 11/19/2022 Abstract [facility] [address] Ino Chun MA Social History Tobacco Use [...] place to sleep or slept in a fpc (including now)? 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 No / Unsure 11/19/2022 11:50 AM TOOL SHAPER SETUP OPERATOR documented as of this encounter Functional Status * RETIRED Are you deaf or do you have serious difficulty hearing Answer Date of Assessment Author Status No 11/08/2022 9:00 PM TOOL SHAPER SETUP OPERATOR Activ e * RETIRED Are you blind or do you have serious difficulty seeing, even when wearing glasses? Answer Date of Assessment Author Status No 11/08/2022 9:00 PM TOOL SHAPER SETUP OPERATOR Activ e * Do you have serious [...] documented as of this encounter Care Teams Human Resources Receptionist Relationship Specialty Start Date End Date Rina Benavides MD [address] [place] [phone] PCP - General INTERNAL MEDICINE 10/24/20 Shea Mallory MD [address] [phone] Consulting Physician CARDIOVASCULAR DISEASE 12/04/22 Christian Delvalle MD [address] [phone] Consulting Physician CLINICAL CARDIAC ELECTROPHYSIOLOGY 12/04/22 documented as of this encounter
--- OUTSIDE RECORDS SUMMARY | 2024-11-22 23:37 | XMS_ITS | Clinical Summary ---
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 SERVER Gender Identity Not on file Sexual Orientation Not on file Obstetrics History Last Filed Vital Signs Vital Sign Reading Time Taken Comments Blood Pressure - - Pulse - - Temperature 36.6 C (97.9 F) 11/03/2021 3:52 PM FOOD AND BEVERAGE SERVER Respiratory Rate - - Oxygen Saturation - - Inhaled Oxygen Concentration - - Weight 63.5 kg (140 lb) 11/03/2021 3:52 PM FOOD AND BEVERAGE SERVER Height 149.9 cm (4' 11 ) 11/03/2021 3:52 PM FOOD AND BEVERAGE SERVER Body Mass Index 28.28 11/03/2021 3:52 PM FOOD AND BEVERAGE SERVER Plan of Treatment Not on file Insurance Care Teams Systems Eng Relationship Specialty Start Date End Date Rina Benavides MD PCP - General Internal Medicine 10/27/21
--- OUTSIDE RECORDS SUMMARY | 2024-11-22 23:37 | XMS_ITS | Clinical Summary ---
Author Organization [facility] Address [address] [facility] Attn: Epic Prelude ADT STELLA MABRY [phone] Care Team Providers Care Orthotic Technician Name Role Phone Unavailable Primary Care Provider [...] Reactive airway disease 04/24/2014 Sciatica--RLE 05/05/2013 Seborrheic [id number]-[id number] lower back 01/03/20 13 Iron deficiency anemia [...] (degenerative joint disease) 12/24/2010 CAD (coronary artery disease)--[id number] 0 02/23/2003 Overview (01/23/2021): 01/27 - Coronary artery disease left main with patch angioplasty at [facility] 11/2007 - CABG X2 - SVG [...] on file Legal Sex Female 8:00 AM MARIONETTE PERFORMER Gender Identity Not on file Sexual Orientation [...]
--- OUTSIDE RECORDS SUMMARY | 2024-11-22 23:37 | XMS_ITS | Encounter Summary ---
Author Organization [facility] Address [address] [place] [address] Care Team Providers Care Tar Heel Name Role Phone Rina Benavides MD Primary Care Provider [phone] Micheline Ricardo MD Unavailable [phone] Shea Mallory MD Unavailable [phone] Christian Delvalle MD Unavailable [phone] Encounter Details Date Type Department Care Team (Late st Contact Info) Description 12/25/2021 Abstract [facility] [id number] Yue Keys, RMA Social History Tobacco Use Types Packs/Day Years Used Date Smoking Tobacco: Former Cigarettes Q uit: 1989 Smokeless Tobacco: Never Alcohol Use Standard Drinks/Week Comments Yes 0 (1 standard drink = 0.6 oz pur e alcohol) socially Comments Unknown Sex and Gender Information Value Date Recorded Sex Assigned at Not on file Legal Sex Female 10:34 AM POWER PLANT 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 Gender Identity Not on file Sexual Orientation [...] Final Result * LIPID PANEL (04/21/2021) Pathologist [facility] CHOLESTEROL 266 HDL 64 TRIGLYCERIDES 206 CHOL/HDL RATIO 4.2 LDL (CALCULATED) 161 04/21/2021 us Doc [facility] Abstract LABORATORY Final Result * TSH (OUTSIDE LAB) (04/21/2021) Pathologist [facility] TSH 1.33 04/21/2021 us Doc [facility] Abstract LAB-OUTSIDE/ABSTRACTED Final Result documented in this encounter Visit Diagnoses Not on filedocumented in this encounter Additional Health Concerns Infection Onset Date Last Indicated Resolved Time COVID-19 Rule Out 03/03/2022 03/03/2022 03/04/2022 2:06 PM CDT COVID-19 Rule Out 02/06/2023 02/06/2023 02/06/2023 12:08 PM CDT documented as of this encounter Care Teams Tar [place]el Relationship Specialty Start Date End Date Rina Benavides MD [address] [place] [phone] PCP - General INTERNAL MEDICINE 10/24/20 Micheline Ricardo MD [address] [place] [address] [place] [phone] (Work) Consulting Physician FAMILY PRACTICE 11/06/22 11/06/22 Shea Mallory MD [address] [address] Consulting Physician CARDIOVASCULAR DISEASE 12/04/22 Christian Delvalle MD [address] [address] Consulting Physician CLINICAL CARDIAC ELECTROPHYSIOLOGY 12/04/22 documented as of this encounter
--- OUTSIDE RECORDS SUMMARY | 2024-11-22 23:37 | XMS_ITS | Encounter Summary ---
Author Organization [facility] Address [address] [place] [address] Care Team Providers Care Irrigation Flume Layer Name Role Phone Rina Benavides MD Primary Care Provider [phone] Micheline Ricardo MD Unavailable [phone] Shea Mallory MD Unavailable [phone] Christian Delvalle MD Unavailable [phone] Encounter Details Date Type Department Care Team (Late st Contact Info) Description 11/22/2020 Abstract [facility] [phone] Ino Chun MA Social History Tobacco Use Types Packs/Day Years Used Date Smoking Tobacco: Former Cigarettes Q uit: 1989 Smokeless Tobacco: Never Alcohol Use Standard Drinks/Week Comments Yes 0 (1 standard drink = 0.6 oz pur e alcohol) socially Comments Unknown Sex and Gender Information Value Date Recorded Sex Assigned at Not on file Legal Sex Female 10:34 AM CLINICAL PHARMACIST Gender Identity Not on file Sexual Orientation Not on file COVID-19 Exposure Response Date Recorded In the last month, have you been in contact with someone who was confirmed or suspected to have Coronavirus / COVID-19? No / Unsure 11/18/2020 1:50 PM CLINICAL PHARMACIST documented as of this encounter Plan of [...] documented as of this encounter Care Teams Irrigation Flume Layer Relationship Specialty Start Date End Date Rina Benavides MD [address] [place] [phone] PCP - General INTERNAL MEDICINE 10/24/20 Micheline Ricardo MD [address] [facility] [place] [phone] (Work) Consulting Physician FAMILY PRACTICE 11/06/22 11/06/22 Shea Mallory MD Three [facility]. [address] [address] Consulting Physician CARDIOVASCULAR DISEASE 12/04/22 Christian Delvalle MD [facility] [address] [place] [phone] Consulting Physician CLINICAL CARDIAC ELECTROPHYSIOLOGY 12/04/22 documented as of this encounter
--- OUTSIDE RECORDS SUMMARY | 2024-11-22 23:37 | XMS_ITS | Referral Summary ---
Author Organization [facility] [employer] Address [address] [place] [address] Care Team Providers Care Position Classification Manager Name Role Phone Rina Benavides MD Primary [...] by mouth daily 06/15/2016 Active vit C-E-zinc qya-nwxwct-vpbm [facility] 50 mg-15 unit- 4.5 mg-2.5 [...] on file Legal Sex Female 10:25 AM SADDLE MAKER Gender Identity Not on file Sexual Orientation Not on file Last Filed Vital Signs Vital Sign Reading Time Taken Comments Blood Pressure - - Pulse - - Temperature 36.6 C (97.9 F) 11/03/2021 3:52 PM SADDLE MAKER Respiratory Rate - - Oxygen Saturation - - Inhaled Oxygen Concentration - - Weight 63.5 kg (140 lb) 11/03/2021 3:52 PM SADDLE MAKER Height 149.9 cm (4' 11 ) 11/03/2021 3:52 PM SADDLE MAKER Body Mass Index 28.28 11/03/2021 3:52 PM SADDLE MAKER Plan of Treatment Not on file Insurance Care Teams Position Classification Manager Relationship Specialty Start Date End Date Rina Benavides MD PCP - General Internal Medicine 10/27/21
--- OUTSIDE RECORDS SUMMARY | 2024-11-22 23:37 | XMS_ITS | Encounter Summary ---
Author Organization [facility] Address [address] [place] [address] Care Team Providers Care Paper Wood Cutter Name Role Phone Rina Benavides MD Primary Care Provider [phone] Shea Mallory MD Unavailable [phone] Christian Delvalle MD Unavailable [phone] Encounter Details Date Type Department Care Team (Late st Contact Info) Description 11/19/2022 Abstract [facility] [address] Ino Chun MA Social History Tobacco Use [...] place to sleep or slept in a senior living (including now)? No 11/08/2022 Comments Unknown Sex and Gender Information Value Date Recorded Sex Assigned at Not on file Legal Sex Female 10:34 AM ACCOUNT STRATEGIST Gender Identity Not on file Sexual Orientation Not on file COVID-19 Exposure Response Date Recorded In the last 10 days, have yo u been in contact with someone who was confirmed or suspected to have Coronavirus/COVID-19? No / Unsure 11/19/2022 11:50 AM ACCOUNT STRATEGIST documented as of this encounter Functional Status * RETIRED Are you deaf or do you have serious difficulty hearing Answer Date of Assessment Author Status No 11/08/2022 9:00 PM ACCOUNT STRATEGIST Activ e * RETIRED Are you blind or do you have serious difficulty seeing, even when wearing glasses? Answer Date of Assessment Author Status No 11/08/2022 9:00 PM ACCOUNT STRATEGIST Activ e * Do you have serious [...] documented as of this encounter Care Teams Paper Wood Cutter Relationship Specialty Start Date End Date Rina Benavides MD [address] [place] [phone] PCP - General INTERNAL MEDICINE 10/24/20 Shea Mallory MD [facility] [address] [place] [address] Consulting Physician CARDIOVASCULAR DISEASE 12/04/22 Christian Delvalle MD [address] [facility] [address] [place] [address] Consulting Physician CLINICAL CARDIAC ELECTROPHYSIOLOGY 12/04/22 documented as of this encounter
--- OUTSIDE RECORDS SUMMARY | 2024-11-22 23:37 | XMS_ITS | Continuity of Care Document ---
Author Organization [facility] [place] Address [address] [place] [address] Phone Care Team Providers Care Graphic Editor Name Role Phone Rina Benavides MD Unavailable Unavailable Allergies, Adverse Reactions, Alerts Substance Reaction Status Criticality Penicillanic Sulfone BL Beta -Lactamase Inhibitors Active No Information ISOSORBIDE MONONITRATE Active No In formation hydrocodone Active No Information apixaban Active No Information Hafegia-QRD-GbJ Reductase Inhibitors Leg cramp(severe) Active No Information Medications Medication Instructions Dosage Effective Dates (start - stop) Status Comments Cymbalta 60 mg capsule,delayed release TAKE 1 CAPSULE BY MOUTH EVERY DAY - Active Seroquel 25 mg tablet take 1/2 tablet by oral route every day in the evening - Active nitroglycerin 0.[address] 1 tablet by sublingual route every 5 minutes as needed for chest pain. Do not exceed 3 doses in 15 minutes. 0.4 MG - Active levothyroxine 75 mcg tablet TAKE 1 TABLET BY MOUTH EVERY DAY - Active aspirin 81 mg tablet,delayed release take 1 tablet by oral route every day 81 MG - Active alprazolam 0.25 mg tablet take 1 tablet by oral route every 6 hours as needed for anxiety - Active Procedures Procedure Date Pt inelig neg scrn depres OFFICE [id number] Visit Complexity Inherent To E/M 2023 BODY MASS INDEX DOCD SYST BP GE 130 - 139MM HG DIAST BP < 80 MM HG FORM CHARGE BASIC METABOLIC PANEL(BMP) ROUTINE VENIPUNCTURE IL Pt inelig neg scrn depres OFFICE [id number] Visit Complexity Inherent To E/M 2023 BODY MASS INDEX DOCD SYST BP LT 130 MM HG DIAST BP < 80 MM HG CBC, INC PLATELETS AND DIFFERENTIAL COMPREHEN METABOLIC PANEL CMP FREE T4 (FT4) LIPID PANEL THYROID STIMULATION HORMONE(TSH) 2023 ROUTINE VENIPUNCTURE IL Pt inelig neg scrn depres OFFICE [id number] BODY MASS INDEX DOCD SYST BP LT 130 MM HG DIAST BP < 80 MM HG BASIC METABOLIC PANEL(BMP) FREE T4 (FT4) THYROID STIMULATION HORMONE(TSH) 2023 ROUTINE VENIPUNCTURE IL Pt inelig neg scrn depres FALL RISK ASSESSMENT DOC'D PRES/ABSN URINE INCON ASSESS OFFICE [id number] BODY MASS INDEX DOCD SYST BP LT 130 MM HG DIAST BP < 80 MM HG CBC, INC PLATELETS AND DIFFERENTIAL COMPREHEN METABOLIC PANEL CMP LIPID PANEL THYROID STIMULATION HORMONE(TSH) 2022 FREE T4 (FT4) ROUTINE VENIPUNCTURE IL [facility] MED/CURRENT MED MERGE Transitional Care- 14 Days Of Discharge BODY MASS INDEX DOCD SYST BP LT 130 MM HG DIAST BP < 80 MM HG TELEPHONE E&M SERVICE BY A PHYSICIAN;5-1 0 MINUTES OF MEDICAL DISCUSSION [facility] MED/CURRENT MED MERGE BASIC METABOLIC PANEL(BMP) CBC, INC PLATELETS AND DIFFERENTIAL [facility] MED/CURRENT MED MERGE Transitional Care- 14 Days Of Discharge BODY MASS INDEX DOCD SYST BP LT 130 MM HG DIAST BP < 80 MM HG BASIC METABOLIC PANEL(BMP) CBC, INC PLATELETS AND DIFFERENTIAL [facility] MED/CURRENT MED MERGE ROUTINE VENIPUNCTURE IL OFFICE [id number] BODY MASS INDEX DOCD SYST BP >= 140 MM HG6 IT DIAST BP < 80 MM HG Pt inelig neg scrn depres OFFICE [id number]-LYRBHEAS BODY MASS INDEX DOCD SYST BP LT 130 MM HG DIAST BP < 80 MM HG BASIC METABOLIC PANEL(BMP) ROUTINE VENIPUNCTURE IL FALL RISK ASSESSMENT DOC'D PRES/ABSN URINE INCON ASSESS Pt inelig neg scrn depres OFFICE [id number] BODY MASS INDEX DOCD SYST BP LT 130 MM HG DIAST BP < 80 MM HG CBC, INC PLATELETS AND DIFFERENTIAL COMPREHEN METABOLIC PANEL CMP LIPID PANEL PARATHYROID HORMONE (PTH) THYROID STIMULATION HORMONE(TSH) 2021 ROUTINE VENIPUNCTURE Pt inelig neg scrn depres [facility] MED/CURRENT MED MERGE Transitional Care- 14 Days Of Discharge BODY MASS INDEX DOCD SYST BP >= 140 MM HG6 IT DIAST BP < 80 MM HG FORM CHARGE Pt inelig neg scrn depres OFFICE [id number] BODY MASS INDEX DOCD SYST BP GE 130 - 139MM HG DIAST BP < 80 MM HG BASIC METABOLIC PANEL(BMP) LIPID PANEL ROUTINE VENIPUNCTURE Depression screen annual Clin depression screen doc OFFICE [id number] BODY MASS INDEX DOCD SYST BP GE 130 - 139MM HG DIAST BP < 80 MM HG FALL RISK ASSESSMENT DOC'D PRES/ABSN URINE INCON ASSESS Depression screen annual Clin depression screen doc OFFICE [id number] BODY MASS INDEX DOCD SYST BP LT 130 MM HG DIAST BP < 80 MM HG CBC, INC PLATELETS AND DIFFERENTIAL COMPREHEN METABOLIC PANEL CMP LIPID PANEL THYROID STIMULATION HORMONE(TSH) 2020 ROUTINE VENIPUNCTURE Pt inelig neg scrn depres OFFICE [id number]-[id number] BODY MASS INDEX DOCD SYST BP LT 130 MM HG DIAST BP < 80 MM HG BASIC METABOLIC PANEL(BMP) LDL-CHOLESTEROL, DIRECT THYROID STIMULATION HORMONE(TSH) 2020 ROUTINE VENIPUNCTURE FALL RISK ASSESSMENT DOC'D PRES/ABSN URINE INCON ASSESS OFFICE [id number] BODY MASS INDEX DOCD SYST BP LT 130 MM HG DIAST BP < 80 MM HG Depression screen annual Clin depression screen doc CBC, INC PLATELETS AND DIFFERENTIAL COMPREHEN METABOLIC PANEL CMP 0 LIPID PANEL THYROID STIMULATION HORMONE(TSH) 2019 ROUTINE VENIPUNCTURE Pt inelig neg scrn depres OFFICE [id number] BODY MASS INDEX DOCD SYST BP >= 140 MM HG6 IT DIAST BP < 80 MM HG CBC, INC PLATELETS AND DIFFERENTIAL COMPREHEN METABOLIC PANEL CMP 0 URINALYSIS, DIPSTICK (UA) - Office Lab M ROUTINE VENIPUNCTURE Pt inelig neg scrn depres OFFICE [id number]-[id number]-[id number] BODY MASS INDEX DOCD SYST BP LT 130 MM HG DIAST BP < 80 MM HG BASIC METABOLIC PANEL(BMP) ROUTINE VENIPUNCTURE Advance Directives Directive Yes / No Effective Date File Name Life Support Not Answered N/A N/A Intubation Not Answered N/A N/A Antibiotics Not Answered N/A N/A IV Fluid Support Not Answered N/A N/A Tube Feed Not Answered N/A N/A Other Directive N/A N/A WARNING:The information contained in this section is historical and is provided for information only and does not constitute a legal document or any assurance that the information is still accurate. Please verify the information with the davila of the legal document before using it for clinical purposes. Encounters Encounter Description Practice Location Reason(s) For Visit Diagnoses Date Provider Providers Copied on Encounter [facility] [place], [address], [place], [place], [address] , [place] tel: [phone] [facility] Information 5 Kennedy Flynn. [address] [place], [place], [address] , [place]. tel: [phone] [facility], [address], [place], [place], [address] , [place] tel: [phone] [facility] No Information 5 Kennedy Flynn. [address] [place], [address] , [place]. tel: [phone] [facility], [address], [place], [place], [address] , [place] tel: [phone] [facility] Occlusion and stenosis of bilateral carotid arteries 4 Kennedy Flynn. [address] [place], [place], [address] , [place]. tel: [phone] OFFICE NLIIA-ZJC-TFA [facility], [address], [place], [place], [address] , [place] tel: [phone] [facility] chronic conditions (chief complaint)C hronic Conditions (chief complaint) Presence of Watchman left atrial appendage closure deviceParoxysmal A-fibSevere late onset Alzheimer's dementia with other behavioral disturbanceDement ia in other diseases classified elsewhere, severe, with other behavioral disturbanceAcquir ed hypothyroidismChr onic obstructive pulmonary disease, unspecified COPD typeAortic atherosclerosisCA D S/P percutaneous coronary angioplastyCorona ry angioplasty status 4 Kennedy Flynn. [address] [place], [place], [address] , [place]. tel: [phone] Referring Provider: Rina Santillan, [address] [place], [address] . tel:[phone] [facility], [address], [place], [place], [address] , [place] tel: [phone] [facility] No Information 4 Bogdan Leone. [address] [facility] [place], [address], [address] , [place]. tel: [phone] Referring Provider: Rina Santillan, [address] [place], [address] . tel:[phone] [facility], [address], [place], [place], [address] , [place] tel: [phone] [facility] Hypertensive heart and chronic kidney disease with heart failure and stage 1 through stage 4 chronic kidney disease, or unspecified chronic kidney diseaseStage 3 chronic kidney disease, unspecified whether stage 3a or 3b CKD 4 Kennedy Flynn. [address] [place], [place], [address] , [place]. tel:[phone] Referring Provider: Rina Santillan, [address] [place], [address] . tel:[phone] OFFICE UGOVH-LGM-TON [facility], [address], [place], [place], [address] , [place] tel: [phone] [facility] Chronic Conditions (chief complaint) Body mass index [BMI] 26.0-26.9, adultChronic kidney disease, stage 3 unspecifiedModera te late onset Alzheimer's dementia without behavioral disturbance, psychotic disturbance, mood disturbance, or anxietyDementia in other diseases classified elsewhere, moderate, without behavioral disturbance, psychotic disturbance, mood disturbance, and anxietyHypertensi ve heart and chronic kidney disease with heart failure and stage 1 through stage 4 chronic kidney disease, or unspecified chronic kidney diseaseMalnutriti on of mild degree 4 Kennedy Flynn. [address] [place], [place], [address] , [place]. tel:[phone] Referring Provider: Rina Santillan, [address] [place], [address] . tel:[phone] [facility], [address], [place], [place], [address] , [place] tel: [phone] [facility] No Information 4 Bogdan Leone. [address], [address] , [place]. tel: [phone] Referring Provider: Rina Santillan, [address] [place], [address] . tel:[phone] [facility] [place], [address], [place], [place], [address] , [place] tel: [phone] [facility] Acquired hypothyroidismSta ge 3 chronic kidney disease, unspecified whether stage 3a or 3b CKDHypertensive heart and chronic kidney disease with heart failure and stage 1 through stage 4 chronic kidney disease, or unspecified chronic kidney diseaseOther and unspecified hyperlipidemia 4 Kennedy Flynn. [address] [place], [place], [address] , [place]. tel: [phone] Referring Provider: Rina Santillan, [address] [place], [address] . tel:[phone] [facility] [place], [address], [place], [place], [address] , tel: [phone] [facility] Dry eye syndrome of bilateral lacrimal glands 4 Kennedy Flynn. [address] [place], [place], [address] , [place]. tel: [phone] [facility] [place], [address], [place], [place], [address] , [place] tel: [phone] [facility] Pulmonary nodules 4 Kennedy Flynn. [address] [place], [place], [address] , [place]. tel: [phone] [facility] [place], [address], [place], [place], [address] , [place] tel: [phone] [employer] [facility] Presence of cardiac pacemaker 4 Kennedy Flynn. [address] [place], [place], [address] , [place]. tel: [phone] [facility] [place], [address], [place], [place], [address] , tel: [phone] [facility] Sick sinus syndromeAtrial fibrillation, unspecified type 4 Kennedy Flynn. [address] [place], [place], [address] , [place]. tel: [phone] OFFICE KQLUX-WPB-DSP [facility], [address], [place], [place], [address] , [place] tel: [phone] [employer] [facility] Worsening memory issues (chief complaint)f /u chronic conditions (chief complaint) Body mass index [BMI] 27.0-27.9, adultParoxysmal A-fibBronchiectas is without complicationGastr oesophageal reflux disease, esophagitis presence not specifiedNonthrom bocytopenic purpuraRecurrent major depressive disorder, in partial remissionCarotid stenosis, bilateralCoronary artery disease involving ottawa coronary artery of ottawa heart with angina pectorisMild early onset Alzheimer's dementia without behavioral disturbance, psychotic disturbance, mood disturbance, or anxietyDementia in other diseases classified elsewhere, mild, without behavioral disturbance, psychotic disturbance, mood disturbance, and anxietyAcquired hypothyroidismAor tic atherosclerosisCh ronic kidney disease, stage 3 unspecifiedConges tive heart failure, unspecified HF chronicity, unspecified heart failure typeHyperlipidemi a, unspecified hyperlipidemia typeHypertensive heart and chronic kidney disease with heart failure and stage 1 through stage 4 chronic kidney disease, or unspecified chronic kidney diseaseInterstiti al lung diseaseIntracrani al atherosclerosisPe ripheral vascular diseasePulmonary emphysema, unspecified emphysema typePulmonary fibrosisSick sinus syndromePresence of cardiac pacemakerPresence of Watchman left atrial appendage closure device 4 Kennedy Flynn. [address] [place], [place], [address] , [place]. tel: [phone] Referring Provider: Rina Santillan, [address] [place], [address] . tel:[phone] [facility], [address], [place], [place], [address] , [place] tel: [phone] [facility] No Information [address] [place] [address], [place], [place], [address] , [place]. tel: [phone] Referring Provider: Rina Santillan, [address] [place], [address] . tel:[phone] [facility], [address], [place], [place], [address] , [place] tel: [phone] [facility] Acquired hypothyroidismHyp ertensive heart and chronic kidney disease with heart failure and stage 1 through stage 4 chronic kidney disease, or unspecified chronic kidney disease 4 Kennedy Flynn. [address] [place], [place], [address] , [place]. tel: [phone] Referring Provider: Rina Santillan, [address] [place], [address] . tel:[phone] [facility], [address], [place], [place], [address] , [place] tel: [phone] [facility] Presence of cardiac pacemakerSick sinus syndrome 4 Kennedy Flynn. [address] [place], [place], [address] , [place]. tel: [phone] [facility], [address], [place], [place], [address] , [place] tel: [phone] [facility] Atrial fibrillation, unspecified typeAtherosclerot ic heart disease of ottawa coronary artery without angina pectoris 3 Kennedy Flynn. [address] [place], [place], [address] , [place]. tel: [phone] [facility], [address], [place], [place], [address] , [place] tel: [phone] [facility] Paroxysmal atrial fibrillation 3 Kennedy Flynn. [address] [place], [place], [address] , [place]. tel: [phone] OFFICE LZZLI-IWJ-PKP [facility], [address], [place], [place], [address] , [place] tel: [phone] [facility] f/u chronic conditions (chief complaint) Body mass index [BMI] 26.0-26.9, adultCarotid stenosis, bilateralParoxysm al A-fibLow TSH levelPresence of Watchman left atrial appendage closure deviceBronchiecta sis without complicationRecur rent major depressive disorder, in partial remissionCoronary artery disease involving ottawa coronary artery of ottawa heart with angina pectorisGastroeso phageal reflux disease, esophagitis presence not specifiedNonthrom bocytopenic purpuraPain in sacrum 3 Kennedy Flynn. [address] [place], [place], [address] , [place]. tel: [phone] Referring Provider: Rina Santillan, [address] [place], [address] . tel:[phone] [facility], [address], [place], [place], [address] , [place] tel: [phone] [facility] No Information 3 Bogdan Cedillon. [address] [facility] [place], [place] [address], [place], [place], [address] , [place]. tel: [phone] Referring Provider: Rina Santillan, [address] [place], [address] . tel:[phone] [facility], [address], [place], [place], [address] , [place] tel: [phone] [facility] Hyperlipidemia, unspecified hyperlipidemia typeHypertensive heart and chronic kidney disease with heart failure and stage 1 through stage 4 chronic kidney disease, or unspecified chronic kidney diseaseAcquired hypothyroidismLow TSH level 3 Kennedy Flynn. [address] [place], [place], [address] , [place]. tel: [phone] Referring Provider: Rina Santillan, [address] [place], [address] . tel:[phone] [facility], [address], [place], [place], [address] , [place] tel: [phone] [facility] Follow-up exam 3 Kennedy Flynn. [address] [place], [place], [address] , [place]. tel: [phone] Transitional Care- 14 Days Of Discharge [facility], [address], [place], [address] , tel: [phone] [facility] Patient encounter (chief complaint) VertigoCarotid stenosis, bilateralPulmonar y nodulesUrinary retentionParoxysm al A-fibAortic ectasiaCerebral atrophyIntracrani al atherosclerosisBo dy mass index [BMI] 26.0-26.9, adultEar pressure, bilateral January- 3 Bebeto Francis. [address] [place], [place], [address] , [place]. [phone] Referring Provider: Rina Santillan, [address] [place], [address] . tel:[phone] TELEPHONE E&M SERVICE BY A PHYSICIAN;5-1 0 MINUTES OF MEDICAL DISCUSSION [facility], [address], [place], [place], [address] , [place] tel: [phone] [facility] Encounter for follow-up examination after completed treatment for conditions other than malignant neoplasm 3 Kennedy Flynn. [address] [place], [place], [address] , [place]. [phone] Referring Provider: Rina Santillan, [address] [place], [address] . tel:[phone] [facility], [address], [place], [place], [address] , [place] tel: [phone] [facility] Sick sinus syndrome 3 Kennedy Flynn. [address] [place], [place], [address] , [place]. tel:[phone] [facility], [address], [place], [place], [address] , [place] tel:[phone] [facility] No Information 3 Bogdan Leone. [address] [facility] [place], [place] [address], [place], [place], [address] , [place]. tel:[phone] Referring Provider: Penny Tate, [address] [place], [address] . tel:[phone] Transitional Care- 14 Days Of Discharge [facility], [address], [place], [place], [address] , [place] tel: [phone] [facility] Patient encounter (chief complaint) Paroxysmal atrial fibrillationHyper tensive heart and kidney disease with chronic diastolic congestive heart failure and stage 3a chronic kidney diseaseChronic kidney disease, stage 3aChronic diastolic (congestive) heart failure Nov- 3 Bebeto Francis. [address] [place], [place], [address] , [place]. tel: [phone] Referring Provider: Rina Santillan, [address] [place], [address] . tel:[phone] [facility], [address], [place], [place], [address] , [place] tel: [phone] [facility] Chronic diastolic (congestive) heart failureFatigue, unspecified typeGait instability 3 Kennedy Fylnn. [address] [place], [place], [address] , [place]. tel: [phone] [facility], [address], [place], [place], [address] , [place] tel: [phone] [facility] No Information 3 Bogdan Leone. [address], [address] , [place]. tel: [phone] Referring Provider: Rina Santillan, [address] [place], [address] . tel:[phone] OFFICE VYYBB-IXB-ZDS [facility], [address], [place], [place], [address] , [place] tel: [phone] [facility] f/u (chief complaint)C hronic Conditions (chief complaint) Sick sinus syndromePresence of cardiac pacemakerParoxysm al atrial fibrillationAnemi a, unspecified typeChronic kidney disease, stage 3aHypertensive heart and kidney disease with chronic diastolic congestive heart failure and stage 3a chronic kidney diseaseChronic diastolic (congestive) heart failure 3 Kennedy Flynn. [address] [place], [place], [address] , [place]. [phone] Referring Provider: Rina Santillan, [address] [place], [address] . tel:[phone] OFFICE UQQKT-PWU-REJ [facility], [address], [place], [place], [address] , [place] tel: [phone] [facility] Chronic conditions (chief complaint)C hronic Conditions (chief complaint) Body mass index [BMI] 28.0-28.9, adultGastroesopha geal reflux disease, esophagitis presence not specifiedChronic kidney disease, stage 3aParoxysmal atrial fibrillationCoron jethro artery disease involving ottawa coronary artery of ottawa heart with angina pectorisHyperlipi demia, unspecified hyperlipidemia typeAcquired hypothyroidismRou emmanuel medical examLow back pain with radiationPulmonar y emphysema, unspecified emphysema typeAortic atherosclerosisAo rtic ectasiaInterstiti al lung diseaseChronic diastolic (congestive) heart failureHypertensi ve heart and kidney disease with chronic diastolic congestive heart failure and stage 3a chronic kidney diseaseBronchiect asis without complicationRecur rent major depressive disorder, in partial remission 3 Kennedy Flynn. [address] [place], [place], [address] , [place]. [phone] Referring Provider: Rina Santillan, [address] [place], [address] . tel:[phone] [facility], [address], [place], [place], [address] , [place] tel: [phone] [facility] No Information 3 Bogdan Leone. [address] [place] [address], [place] [address], [place], [place], [address] , [place]. tel: [phone] Referring Provider: Rina Santillan, [address] [place], [address] . tel:[phone] [facility], [address], [place], [place], [address] , [place] tel: [phone] [facility] Hypertensive heart and chronic kidney disease with heart failure and stage 1 through stage 4 chronic kidney disease, or unspecified chronic kidney diseaseParoxysmal atrial fibrillationBrady cardia, unspecifiedSick sinus syndrome Fe 3 Kennedy Flynn. [address] [place], [place], [address] , [place]. tel: [phone] Referring Provider: Rina Santillan, [address] [place], [address] . 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 [address] [place], [place], [address] , [place]. tel: [phone] [facility], [address], [place], [place], [address] , tel: [phone] [place] Ingrowing nail 2 Kennedytia Flynn. [address] [place], [place], [address] , [place]. tel: [phone] [facility], [address], [place], [place], [address] , tel: [phone] [facility] Atrial fibrillation, unspecified type 2 Kennedytia Flynn. [address] [place], [place], [address] , [place]. tel: [phone] [facility], [address], [place], [place], [address] , tel: [phone] [facility] Atrial fibrillation, unspecified type 2 Kennedy Flynn. [address] [place], [place], [address] , [place]. tel: [phone] [facility], [address], [place], [place], [address] , tel: [phone] [place] Pulmonary nodule 2 Kennedy Flynn. [address] [place], [place], [address] , [place]. tel: [phone] OFFICE YHQWP-OIF-IAA [facility] [employer] [facility], [address], [place], [place], [address] , tel: [phone] [facility] Chronic Conditions (chief complaint) Body mass index [BMI] 27.0-27.9, adultParoxysmal atrial fibrillationHyper lipidemia, unspecified hyperlipidemia typeRoutine medical examCoronary artery disease involving ottawa coronary artery of ottawa heart with angina pectorisHypertens jonathan heart and kidney disease with chronic diastolic congestive heart failure and stage 3a chronic kidney diseaseChronic diastolic (congestive) heart failureChronic kidney disease, stage 3aGastroesophagea l reflux disease, esophagitis presence not specifiedAcquired hypothyroidismPai n of toe of right footAnemia, unspecified type 2 Kennedy Flynn. [address] [place], [place], [address] , . tel: [phone] Referring Provider: Rina Santillan, [address] [place], [address] . tel:[phone] [facility], [address], [place], [place], [address] , tel: [phone] [place] Hyperlipidemia, unspecified hyperlipidemia typeHypertensive kidney disease with stage 3 chronic kidney disease, unspecified whether stage 3a or 3b CKDChronic kidney disease, stage 3 unspecifiedAcquir ed hypothyroidism 2 Kennedy Flynn. [address] [place], [place], [address] , . tel: [phone] Referring Provider: Rina Santillan, [address] [place], [address] . tel:[phone] [facility], [address], [place], [place], [address] , tel: [phone] [place] Atrial fibrillation, unspecified type 2 Kennedy Flynn. [address] [place], [place], [address] , . tel: [phone] [facility], [address], [place], [place], [address] , tel: [phone] [place] Paroxysmal atrial fibrillationCAD in ottawa arteryEssential (primary) hypertensionAtria l fibrillation, unspecified type 2 Kennedy Flynn. [address] [place], [place], [address] , [place]. tel: [phone] Transitional Care- 14 Days Of Discharge [facility], [address], [place], [place], [address] , tel: [phone] [facility] f/u (chief complaint) Body mass index [BMI] 28.0-28.9, adultParoxysmal atrial fibrillationChron ic kidney disease, stage 3 unspecifiedHypert ensive kidney disease with stage 3 chronic kidney disease, unspecified whether stage 3a or 3b CKDPulmonary emphysema, unspecified emphysema typePulmonary noduleCongestive heart failure, unspecified HF chronicity, unspecified heart failure type Dec- 2 Bebeto Francis. 4 [place], [place], [address] , [place]. tel: [phone] Referring Provider: Rina Santillan, [address] [place], [address] . tel:[phone] [facility], [address], [place], [place], [address] , [place] tel: [phone] [place] Paroxysmal atrial fibrillation Dec- 2 Kennedy Flynn. [address] [place], [place], [address] , [place]. tel: [phone] [facility], [address], [place], [place], [address] , [place] tel: [phone] [place] Chest pain, unspecified type 2 Kennedy Flynn. [address] [place], [place], [address] , [place]. tel: [phone] [facility], [address], [place], [place], [address] , [place] tel: [phone] [place] Presence of intraocular lens Nov- 2 Kennedy Flynn. [address] [place], [place], [address] , [place]. tel: [phone] OFFICE FYAFI-UTX-VYL STEWART [facility], [address], [place], [place], [address] , [phone] Thien Chronic Conditions (chief complaint)f /u chronic conditions (chief complaint) Body mass index [BMI] 28.0-28.9, adultHyperlipidem ia, unspecified hyperlipidemia typeAtheroscleros is of ottawa coronary artery without angina pectoris, unspecified whether ottawa or transplanted heartHypertensive kidney disease with stage 3 chronic kidney disease, unspecified whether stage 3a or 3b CKDPulmonary emphysema, unspecified emphysema typeRoutine medical examChronic kidney disease, stage 3 unspecifiedAcquir ed hypothyroidismAor tic atherosclerosisPe ripheral vascular diseaseChronic obstructive pulmonary disease, unspecified COPD typeForeign body of right ear, initial encounterBronchie ctasis without complicationGastr oesophageal reflux disease, esophagitis presence not specifiedRecurren t major depressive disorder, in partial remissionEncounte r for screening mammogram for malignant neoplasm of breastAsymptomati c menopausal state 2 Kennedy Flynn. [address] [place], [place], [address] , . [phone] Referring Provider: Rina Santillan, [address] [place], [address] . tel:[phone] [employer] [facility], [address], [place], [place], [address] , [phone] Thien Hypertensive kidney disease with stage 3 chronic kidney disease, unspecified whether stage 3a or 3b CKDChronic kidney disease, stage 3 unspecifiedHyperl ipidemia, unspecified hyperlipidemia type 2 Kennedy Flynn. [address] [place], [place], [address] , . tel:[phone] Referring Provider: Rina Santillan, [address] [place], [address] . tel:[phone] OFFICE SZGNA-XVT-DSJ [facility] [employer] [facility], [address], [place], [place], [address] , [phone] Thien discuss meds (chief complaint)C hronic Conditions (chief complaint) Moderate major depressionHyperli pidemia, unspecified hyperlipidemia typeAortic valve calcification Oct-1 9-202 1 Kennedy Flynn. [address] [place], [place], [address] , . tel: [phone] Referring Provider: Rina Santillan, [address] [place], [address] . tel:[phone] OFFICE UPKXY-CYC-JFL STEWART [facility], [address], [place], [place], [address] , tel: [phone] [place] Chronic Conditions (chief complaint) Body mass index (BMI) 28.0-28.9, adultPulmonary emphysema, unspecified emphysema typeMyalgiaAthero sclerosis of ottawa coronary artery without angina pectoris, unspecified whether ottawa or transplanted heartHypertensive kidney disease with stage 3 chronic kidney disease, unspecified whether stage 3a or 3b CKDChronic kidney disease, stage 3 unspecifiedRoutin e medical exam 1 Kennedy Flynn. [address] [place], [place], [address] , . tel: [phone] Referring Provider: Rina Santillan, [address] [place], [address] . tel:[phone] [employer], [address], [place], [place], [address] , tel: [phone] [place] Essential hypertensionPure hypercholesterole miaAcquired hypothyroidism 1 Kennedy Flynn. [address] [place], [place], [address] , . tel: [phone] Referring Provider: Rina Santillan, [address] [place], [address] . 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 [address] [place], [place], [address] , . tel: [phone] [employer], [address], [place], [place], [address] , tel: [phone] Thien Atherosclerosis of CABG, unsp, w unsp angina pectorisOther visual disturbances 1 Kennedy Flynn. [address] [place], [place], [address] , . tel: [phone] OFFICE AAODB-KBQ-HWH [facility], [address], [place], [place], [address] , tel: [phone] Thien f/u chronic conditions (chief complaint) Body mass index (BMI) 28.0-28.9, adultAcquired hypothyroidismMod erate major depressionChronic obstructive pulmonary disease, unspecified COPD typeAortic atherosclerosisCo ronary artery disease involving coronary bypass graft of ottawa heart with angina pectorisPeriphera l vascular diseaseBronchiect asis without complicationPulmo nary fibrosisGastroeso phageal reflux disease, esophagitis presence not specifiedDiplopia Essential hypertensionOther and unspecified hyperlipidemia 1 Kennedy Flynn. [address] [place], [place], [address] , . tel: [phone] Referring Provider: Rina Santillan, [address] [place], [address] . tel:[phone] [employer] [facility], [address], [place], [place], [address] , tel: [phone] Thien Pulmonary nodule 0 Kennedy Flynn. [address] [place], [place], [address] , . tel: [phone] [facility], [address], [place], [place], [address] , tel: [phone] Thien Nicotine dependence, cigarettes, in remission 0 Kennedy Flynn. [address] [place], [place], [address] , . tel: [phone] OFFICE [facility]FTKR[facility]JR[facility], [address], [place], [place], [address] , tel: [phone] Thien Px (chief complaint)C hronic Conditions (chief complaint) Essential hypertensionChron ic obstructive pulmonary disease, unspecified COPD typeAcquired hypothyroidismGas troesophageal reflux disease with esophagitisRoutin e medical examBody mass index (BMI) 29.0-29.9, adultModerate major depressionEsophag eal stricture 0 Tate Penny. 4 [place], [place], [address] , [place]. tel: [phone] Referring Provider: Rina Santillan, [address] [place], [address] . tel:[phone] OFFICE YVYFJ-ETZ-JYB [facility], [address], [place], [place], [address] , tel: [phone] Marion acid reflux (chief complaint)C hronic Conditions (chief complaint) Body mass index (BMI) 30.0-30.9, adultGastroesopha geal reflux disease, esophagitis presence not specifiedRight lower quadrant abdominal painUrinary frequencyPharyngo esophageal dysphagiaCoronary artery disease involving coronary bypass graft of ottawa heart with angina pectorisAortic atherosclerosisCh ronic obstructive pulmonary disease, unspecified COPD typeOther and unspecified hyperlipidemiaEss ential hypertensionBronc hiectasis without complicationPulmo nary fibrosisPeriphera l vascular disease 0 Kennedy Flynn. [address] [place], [place], [address] , [place]. tel: [phone] Referring Provider: Rina Santillan, [address] [place], [address] . tel:[phone] OFFICE ALEBJ-YKD-GEO [facility], [address], [place], [place], [address] , [place] tel: [phone] [place] Chronic conditions f/u (chief complaint)C hronic Conditions (chief complaint) Body mass index (BMI) 30.0-30.9, adultOther and unspecified hyperlipidemiaCor onary artery disease involving coronary bypass graft of ottawa heart with angina pectorisEssential hypertensionRight elbow painBronchiectasi s without complicationPulmo nary fibrosis 9 Kennedy Flynn. [address] [place], [place], [address] , [place]. tel: [phone] Referring Provider: Rina Santillan, [address] [place], [address] . tel:[phone] [employer], [address], [place], [place], [address] , tel: [phone] [place] Pulmonary nodule May-2 9 Kennedy Flynn. [address] [place], [place], [address] , . tel:[phone] [employer] [facility], [address], [place], [place], [address] , tel: [phone] Marion 6 wk f/u HTN & vag discharge (chief complaint)C hronic Conditions (chief complaint) Aortic atherosclerosisBa cterial vaginosisPulmonar y noduleOther and unspecified hyperlipidemia 9 Kennedy Flynn. [address] [place], [place], [address] , . [phone] Referring Provider: Rina Santillan, [address] [place], [address] . tel:[phone] [employer], [address], [place], [place], [address] , tel: [phone] [place] Acquired hypothyroidismEss ential hypertensionOther and unspecified hyperlipidemia 9 Kennedy Flynn. [address] [place], [place], [address] , . tel:[phone] Referring Provider: Rina Santillan, [address] [place], [address] . tel:[phone] [employer], [address], [place], [place], [address] , tel: [phone] [place] Chronic obstructive pulmonary disease, unspecified COPD typeGastroesophag eal reflux disease, esophagitis presence not specifiedCoronary artery disease involving coronary bypass graft of ottawa heart with angina pectorisEssential hypertensionPerip heral vascular diseaseAcquired hypothyroidismPul monary nodulePure hypercholesterole miaEncntr screen mammogram for malignant neoplasm of breastPost-menopa usa Nov- 9 Kennedy Flynn. [address] [place], [place], [address] , . tel:[phone] Referring Provider: Rina Santillan, [address] [place], [address] . tel:[phone] Family History Family Member Type Diagnosis Age At Onset Sister Problem (finding) Obesity Sister Problem (finding) depression Problem (finding) Family history of Obesi ty Mother Problem (finding) Obesity Brother Problem (finding) depression Brother Problem (finding) Obesity Brother Problem (finding) Cardiovascular disease Mother Problem (finding) hypertension Brother Problem (finding) Hearing deficiency Mother Problem (finding) coronary arterioscleros is Immunizations Vaccine Date Status Comments Pneumococcal conjugate PCV 13 administere d Source: New Immunization Record meningococcal B, OMV, 2 dose schedule administered Source: Source Unspe cified Payers Payer name Insurance type Covered constitution party ID Authoriza tion(s) [employer] MB [id number] [employer] [place] [id number] [employer] [id number] Social History Type Description Quantity Date Captured Comments Alcohol Use Details Unknown Caffeine Use Details Unknown Tobacco Use Status No Information Smoking Status No Information Sex Female Sexual Orientation Straight or heterosexual Gender Identity Female Chief Complaint And Reason For Visit No Information Reason For Referral Reason For Referral No Information Plan Of Treatment Date Type Action Status Goal Dietary manageme nt education, guidance, and counseling completed Goal Dietary manageme nt education, guidance, and counseling completed Goal Dietary manageme nt education, guidance, and counseling completed Goal Dietary manageme nt education, guidance, and counseling completed Goal Dietary manageme nt education, guidance, and counseling completed Goal Dietary manageme nt education, guidance, and counseling completed Goal Dietary manageme nt education, guidance, and counseling completed Goal Dietary manageme nt education, guidance, and counseling completed Goal Dietary manageme nt education, guidance, and counseling completed Goal Dietary manageme nt education, guidance, and counseling completed Goal Dietary manageme nt education, guidance, and counseling completed Goal Dietary manageme nt education, guidance, and counseling completed Goal Dietary manageme nt education, guidance, and counseling completed Referral Ordered: JEANETTE MARCUS -[facility] : Surgery : Vascular Surgery (related to Occlusion and stenosis of bilateral carotid arteries) ordered Referral Referred To: JEANETTE MARCUS [address] [place], [place] [address] [address] [place], [phone] Ordered: Referrals: Vascular Surgery. JEANETTE MARCUS. Evaluation/diagnostic/treatment - Level 3 ordered Referral Referred To: Edenilson Elmore [address] [place], [place], [phone] Ordered: Referrals: Ophthalmology. Edenilson Elmore. Evaluation/diagnostic/treatment - Level 3 Appointment date/timeframe: 04/19/2024 ordered Referral Referred To: [address] [place], [place], [phone] Ordered: CT Chest WO contrast ordered Referral Referred To: [place], [phone] Ordered: Referrals: Cardiology. Shea Mallory MD. Evaluation/diagnostic/treatment - Level 3 Appointment date/timeframe: 01/24/2024 ordered Referral Referred To: [place], [phone] Ordered: Referrals: Cardiology. SHEA MALLORY. Evaluation/diagnostic/treatment - Level 3 Appointment date/timeframe: 06/21/2023 ordered Referral Referred To: ANA LILIA [place], [phone] Ordered: Referrals: Cardiology. ANA LILIA MURRELL. Evaluation/diagnostic/treatment - Level 3 Appointment date/timeframe: 05/20/2023 ordered Referral Ordered: Shaan Elmore MD -Ophthalmology (related to Follow-up exam) ordered Referral Referred To: Alexandru Marcus MD [address] [facility] [address] [place], [phone] Ordered: Referrals: Vascular Surgery. Alexandru Marcus MD. Evaluation/diagnostic/treatment - Level 3 ordered Referral Ordered: Shea Mallory -Cardiology (related to Sick sinus syndrome) ordered Referral Referred To: Shea Mallory Ordered: Referrals: Cardiology. Shea Mallory. Evaluation/diagnostic/treatment - Level 3 Appointment date/timeframe: 02/15/2023 ordered Referral Ordered: Walker variable wheel resist (related to Chronic diastolic (congestive) heart failure) ordered Referral Referred To: Walker variable wheel resist Ordered: Referrals: Walker variable wheel resist. Evaluation/diagnostic/treatment - Level 3 ordered Referral Ordered: XR lumbosacral spine, 2-3 views ordered Referral Ordered: Ana Lilia Murrell -Cardiology (related to Paroxysmal atrial fibrillation) ordered Referral Referred To: Ana Lilia Murrell Ordered: Referrals: Cardiology. Ana Lilia Murrell. Evaluation/diagnostic/treatment - Level 3 Appointment date/timeframe: 11/05/2022 ordered Referral Referred To: Dr. Shea Mallory Ordered: Referrals: Cardiology. Dr. Shea Mallory. Evaluation/diagnostic/treatment - Level 3 Appointment date/timeframe: 09/02/2022 ordered Referral Ordered: Elmer Richardson MD -Podiatry (related to Ingrowing nail) ordered Referral Referred To: Elmer Richardson MD [address] [place] [address], [phone] Ordered: Referrals: Podiatry. Elmer Richardson MD. Evaluation/diagnostic/treatment - Level 3 Appointment date/timeframe: 08/01/2022 ordered Referral Referred To: [address] [place], [phone] Ordered: Follow-up low-dose computed tomography (LDCT) of chest without contrast ordered Referral Referred To: Jeff Cardoso DPM [address] [place] [address]
[facility] [address], [phone] Ordered: Referrals: Podiatry. Jeff Cardoso DPM. Evaluation/diagnostic/treatment - Level 3 ordered Referral Ordered: SCREENING MAMMOGRAM (CAD) ordered Referral Referred To: Dr Murrell [address] [place], [place], [phone] Ordered: Referrals: Cardiac Surgery. Dr Murrell. Location: [facility]. Evaluation/diagnostic/treatment - Level 3 Appointment date/timeframe: 04/02/2022 ordered Referral Referred To: [place], [phone] Ordered: Referrals: Cardiology. Shea Mallory MD. Evaluation/diagnostic/treatment - Level 3 Appointment date/timeframe: 02/19/2022 ordered Referral Referred To: [place], [phone] Ordered: Referrals: Cardiology. Ana Lilia Murrell MD. Evaluation/diagnostic/treatment - Level 3 Appointment date/timeframe: 01/26/2022 ordered Referral Referred To: Italo Rios 3 [facility]
[address] [place], [place], [phone] Ordered: Referrals: Cardiology. Italo Rios. Evaluation/diagnostic/treatment - Level 3 Appointment date/timeframe: 12/25/2021 ordered Referral Referred To: Rakan Sloan MD [address] [place], [phone] Ordered: Referrals: Otolaryngology. Rakan Sloan MD. Evaluation/diagnostic/treatment - Level 3 ordered Referral Referred To: [address] [place], [phone] Ordered: DEXA of spine and hip ordered Referral Referred To: Italo Clifton MD Ordered: Referrals: Cardiology. Italo Clifton MD. Evaluation/diagnostic/treatment - Level 3 Appointment date/timeframe: 01/13/2021 ordered Referral Referred To: Italo Rios MD Ordered: Referrals: Cardiology. Italo Rios MD. Evaluation/diagnostic/treatment - Level 3 Appointment date/timeframe: 11/11/2020 ordered Referral Referred To: Shaan Elmore MD [facility] [address] [place], [address] Ordered: Referrals: Ophthalmology. Shaan Elmore MD. Evaluation/diagnostic/treatment - Level 3 Appointment date/timeframe: 11/14/2020 ordered Referral Referred To: [facility] Ordered: Referrals: Ophthalmology. [facility]. Evaluation/diagnostic/treatment - Level 3 ordered Referral Referred To: [facility] Ordered: Referrals: Cardiology. [facility]. Evaluation/diagnostic/treatment - Level 3 ordered Referral Referred To: [address] [place], [phone] Ordered: Low dose CT scan (ldct) for lung cancer screening ordered Referral Referred To: [address] [place], [phone] Ordered: CT abdomen and pelvis w contrast ordered Referral Referred To: Franklin Avila MD [address] [place], [phone] Ordered: Referrals: Gastroenterology. Franklin Avila MD. Consult - Level 1 ordered Referral Referred To: Joh[address] [place], [phone] Ordered: X-RAY EXAM OF ELBOW Right Appointment date/timeframe: 09/16/2019 ordered Appointment Fallon Burris BOOKED Future Order: Lab Order [facility] roman - TB Gold ([id number]), Sent on: Sent History Of Present Illness Encounter Date Complaint History Of Prese nt Illness Chronic Conditions *See Chronic Conditions HPI chronic conditions Chronic Conditions *See Chronic Conditions HPI f/u chronic conditions Sick sinu s syndromeStableHR controlled since pacemaker placement on 11/13/22. Presence of cardiac pacemakerStableHR controlled since pacemaker placement on 11/13/22. No syncopal episodes and no CP or SOB.Paroxysmal atrial fibrillationStableHR controlled. Had Watchman procedure last year followed closely by Dr. Wyattensive heart and kidney disease with chronic diastolic congestive heart failure and stage 3a chronic kidney diseaseStableBP stable on current meds. Has CKD due to HTN stable. Chronic diastolic CHF stable without increased SOB or increased LE edema.Chronic kidney disease, stage 3aStable Has CKD due to HTN stable with GFR 48 on recent labsChronic diastolic (congestive) heart failureStableCHF due to HTN stable on meds without increased SOB or increased LE edema.Pulmonary emphysema, unspecified emphysema typeStableStable on Anoro inhaler without SE's. No recent increased wheezing or SOB.Aortic atherosclerosisStable noted on prior imagingstable on fenofibrate without SE'sAortic ectasiaStablenoted on prior imaging- stable. No CpInterstitial lung diseaseStablestable noted on prior imaging- no increased SOBBronchiectasis without complicationStablenoted on prior imaging- stable without increased cough or SOBRecurrent major depressive disorder, in partial remissionStablemood stable on duloxetine without SE'sCoronary artery disease involving ottawa coronary artery of ottawa heart with angina pectorisStablestable followed by cardiology Not having any CPCerebral Atrophy was noted on CT head 02/06/23. No new neurological symptomsPeripheral vascular diseaseStablehas chronic PVD- not much walking. No leg pain at rest.Intracranial athero, was noted on CT head 02/06/23. stable with lipids controlled on medication without SE'sHyperlipidemia, unspecified hyperlipidemia typeStablestable on fenofibrate without SE'sAcquired hypothyroidismStablestable on levothyroxine without SE's. Compliant with med with free T4 normal on recent labs.Gastroesophageal reflux disease, esophagitis presence not specifiedStableGERD controlled on omeprazole without SE's Worsening memory issues Daughter who lives with pt. and accompanied her today reports that she and her siblings are very concerned with worsening short term memory loss.Has difficulty following along with stories and forgets things people had told her just a few minutes prior. Daughter assists her with ADLs of meal prep and with medication monitoring. Pt. still independent with hygiene. Daughter feels memory has been worsening over past year but more noticable in past 3 to 4 months. See MMSE in screening tools done today 23 out of 30.Had difficulty with staying focused and attentive. f/u chronic conditions Has parox ysmal atrial fibrillation- stable with HR controlledHad Watchman placed earlier this year stable - no longer requirng anticoagulationHas carotid stenosis noted on hospital d/c 02/09/23 followed closely by cardiologyNo new neurologic symptomsBronchiectasis without complicationStablenoted on prior imaging- stable without increased cough or SOBRecurrent major depressive disorder, in partial remissionStablemood stable on duloxetine without SE'sCoronary artery disease involving ottawa coronary artery of ottawa heart with angina pectorisStablestable followed by cardiology Not having any CPStablestable on fenofibrate without SE'sAcquired hypothyroidismStablestable on levothyroxine without SEs. TSH mildly abnormal on recent labs. Compliant with medGastroesophageal reflux disease, esophagitis presence not specifiedStableGERD controlled on omeprazole that she takes prn without SE'sSacral painUncontrolled- new onsethaving increased low back pain worse with movement when getting up from seated position or with walking Patient encounter Chief complain t: hospital followup.82 year old female who presents for hospital followup. She presented to ER on 02/06/23 after sudden onset of dizziness and fall. She went to bed the night prior with no symptoms. She woke up in the middle of the night with dizziness described as room spinning. She had several episodes of vomiting and headache. She was getting up to vomit and fell to the ground. She had right arm pain that has improved. No other injuries noted. She had a normal head CT. She had MRI/MRA brain and neck which showed 65% stenosis of left internal carotid and 40% stenosis of right internal carotid. 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 She was given meclizine which improved symptoms. 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 She had neuro consulted. Continue ASA. She does not tolerate statins. She had consult with Dr Marcus, vascular and will followup outpatient for possible carotid endarterectomy.She has Afib persistent after ablation in 02/2022 and watchmans in 11/2022. She had OMAR during hospitalization with no thrombus noted'She had transitionary hypoxia which improved during hospital stayShe had urinary retention which also improved during hospital stay. Pulm nodule noted on CT. Recommend followup in 12 months. This is stable since 2Cerebral Atrophy was noted on CT head 02/06/23. No new neurological symptomsAortic ectasia was noted on CT chest 06/09/22. She takes fenofibrate and ASAIntracranial athero, was noted on CT head 02/06/23. She takes fenofibrate and ASAShe was discharged on 02/09/23 to home. She is getting PT and OT in her home. She has no dizziness currently. This resolved after her hospital stay. She had one episode with turning too fast and getting dizzy since discharge. She reports ears blocking up for the past few days. She has no ear pain. Patient encounter Chief complain t: hospital followup.82 year old female who presents for hospital followup. She had a planned Watchmans procedure on 12/08/22 at [facility]. She was monitored then discharged home on 12/09/22. Procedure performed by Dr Young. She had a pre-op OMAR with no pre-op thrombus noted. She was told no exertional activity for 6 weeks. She will have repeat OMAR vs CTA in 6 weeks. She will take Xarelto for 45 days and followup with chairman & ceo.She has complained of pain to chest and back that has been occurring since her procedure. This only occurs with movement and is improving. She has followup with Dr Young. She also complains of left sided sore throat since procedure and this is also improving. It is worse with eating and swallowing.She has stable BP on medications with stable CKD due to HTN. She has diastolic HF with no recent swelling, SOB, weight gain Chronic Conditions *See Chronic Conditions HPI hospital f/u Pt. here for [facility] f/u.Pt. was admitted to [facility] 11/06/22, OBS: arrived for scheduled Pacemaker placement by Dr. Murrell.Pt. found to have profound anemia on admission with hgb 4.9. Admitted to intermittent bloody stools over past month along with dysphagia. Pt. seen by GI and had colonoscopy that showed diverticulosis but no active bleeding. Xarelto was on hold during hospital stay but resumed at d/c.No bloody stools since d/c. D/c'd home on omeprazole 20mg BID. Pt. had pacemaker placed on 11/11/22 and was d/c'd home on 11/13/22. Denies any CP or increased SOB.Still has low energy but stable.Walks with a walker but feels she tires easily and has a difficult time walking more than 50 to 100 feet without stopping. Chronic conditions Chronic Conditions *See Chronic Conditions HPI Chronic Conditions *See Chronic Conditions HPI hospital f/u 81 year old basil rios who presents for hospital followup. She was admitted on 01/14/2022. She presented to ER with concern of new onset Afib with RVR prior to an outpatient stress test. She noted palpitations and some SOB. She was initially started on metoprolol for rate control while admitted. Scaffold Builder was consulted and diuresed for possible CHF. Her rate was not well controlled so EP was consulted. Sotalol was initiated and planned for cardioversion on 01/16 which was successful. She developed OT prolongation with sotalol and bradycardia with metoprolol. These were discontinued. She was given Eliquis. She had EVANS and hypotension post cardioversion. This improved while avoiding nephrotoxic agents. She was discharged home on 01/19/2022 with need for short term followup with cardio and EP. She is taking Eliquis 2.5 mg BIDShe had a CTA which showed an indeterminate lung nodule in superior segment of right lower lobe and cannot exclude bronchogenic carcinoma. There was a nodule noted on previous CT in 2019. She was diuresed during hospital stay and diuretics were stopped prior to discharge due to EVANS.She has appointments scheduled with EP and chairman & ceo Chronic Conditions f/u chronic conditions Coronary artery disease involving coronary bypass graft of [place] heart with angina pectorisStablehas CAD but no recent CP. On aspirin and metoprolol. Has nitro to take prn for angina symptoms but no recent use.Aortic atherosclerosisStablenoted on prior imaging on CT 06/13/18- no CP or abd painChronic obstructive pulmonary disease, unspecified COPD typeStablehas COPD on Anoro- no recent wheezing or increased SOB.Other and unspecified hyperlipidemiaStabletrying to control with low fat diet intolerant of statins but is tolerating fenofibrate without SE's. LDL did improve since starting this last visit down to 145 on recent labs. Bronchiectasis without complicationStableCT 06/28/19- has chronic cough not productive of any discolored sputumPulmonary fibrosisStableCT 06/28/19- has chronic mild SOB with exertion but no recent worseningPeripheral vascular diseaseStablehas chronic PVD- not much walking. No leg pain at rest.Has major depression in partial remission with mood stable on duloxetine without SE's. No SI's or HI's.Has GERD stable on omeprazole without any recent worsening symptoms. No SE's on med.Has hypothyroidism stable on levothryoxine with TSH normal in 04/16. Energy level stable.Has been having difficulty hearing out of right ear. Does wear hearing aids and has not noticed any loose pieces missing from her hearing aid. Chronic Conditions *See Chronic Conditions HPI discuss meds Chronic Conditions *See Chronic Conditions HPI f/u chronic conditions Coronary artery disease involving coronary bypass graft of [place] heart with angina pectorisStablehas CAD but no recent CP. On aspirin and metoprolol. Takes nitro at times for angina symptoms but none recently.Aortic atherosclerosisStablenoted on prior imaging on CT 06/13/18- no CP or abd painChronic obstructive pulmonary disease, unspecified COPD typeStablehas COPD on dulera- no recent wheezing but does feel short of breath at times usually worse with exertion.Other and unspecified hyperlipidemiaStabletrying to control with low fat diet intolerant of statins and not willing to try any other cholesterol lowering medEssential hypertensionstable on metoprololBronchiectasis without complicationStableCT 06/28/19- has chronic cough not productive of any discolored sputumPulmonary fibrosisStableCT 06/28/19- has chronic mild SOB with exertion but no recent worseningPeripheral vascular diseaseStablehas chronic PVD- not much walking. No leg pain at rest.Has major depression with mood worse over past 6 months due to COVID 19 pandemic. Daughter checks on her regularly. On duloxetine without SE's. No SI's or HI's.Has GERD stable on famotidine without any recent worsening symptoms. No SE's on med.Has been having double vision out of right eye for past 10 months. States she contacted her eye doctor but was told she did not need to be seen for this. Px Patient presents for annual physicalAcutePatient is having a difficult time hearing for the past 6 months. She does have hearing aids but she feels this is due to ear wax buildup. ChronicSee chronic conditions sheetMood - not great due to COVID - been crying when she is alone sometimes. she does not feel depressed but feels like she is all due to COVID and will resolve when things improving. she does not want any meds at this time. Diet - not a very healthy diet per patientExercise - not a lotImmunizationsInfluenza - REFUSES NOW DUE TO HURTING HER ARMPneumonia - Updated pneumovax todayShingrix - DUE NOWScreeningsColonoscopy - UTD 11/2019Dexa- UTD 11/2018Mammogram - DUE NOW Chronic Conditions *See Chronic Conditions HPI acid reflux Pt here with pro blems with acid reflux for past 2 months.Feels like food gets stuck in the upper esophagus at times and has vomited occasionally 3 times in past couple of months. Most recent episode of emesis was approx. a week ago. Tried pantoprazole without improvement.States ranitidine has helped but quit taking it when it was recalled.States she also has pain over RLQ that has been intermittent but more constant over past month. No fever noted. No melena or hematochezia. No change in BM's.Has been having increased urinary frequency but no dysuria or hematuria. Chronic Conditions *See Chronic Conditions HPI Chronic Conditions *See Chronic Conditions HPI Chronic conditions f/u 6 wk f/u HTN & vag discharge Chronic Conditions *See Chronic Conditions HPI Functional Status Date Functional Assessmen t No Information Instructions Date Instruction Additional Infor michael continue aspirin and close monitoring with cardiology Related to Coronary angioplasty status This is a common fin ding on imaging with mild plaque build up on the aorta. Continue to work on good blood pressure and cholesterol control to reduce cardiovascular risk. 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 Start on seroquel (q uietiapine) 25mg tab- 1/2 tab once daily every eveningContinue alprazolam (xanax) as needed for agitation/anxietyforms completed for [facility]- we will fax to themOrder given for Quantiferon gold TB screening test Related to Dementia in other diseases classified elsewhere, severe, with other behavioral disturbance continue close monit oring with cardiology Related to Presence of Watchman left atrial appendage closure device Continue to follow w [facility] chairman & ceo for close monitoring Related to Paroxysmal A-fib Continue to work on increasing caloric intake and encourage eating regular meals Related to Malnutrition of mild degree Start namechanelle christopher r pack- follow directions to titrate dose to max of 10mg twice dailyCall for refill if you are tolerating this - reviewed possible side effects Related to 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 behavioral disturbance, psychotic disturbance, mood disturbance, or anxiety Start namenda jayline r pack- follow directions to titrate dose to max of 10mg twice dailyCall for refill if you are tolerating this - reviewed possible side effects Related to Dementia in other diseases classified elsewhere, moderate, without behavioral disturbance, psychotic disturbance, mood disturbance, and anxiety continue current med s and low salt diet Related to Hypertensive heart and chronic kidney disease with heart failure and stage 1 through stage 4 chronic kidney disease, or unspecified chronic kidney disease continue current med s and close monitoringfollow up in 4 months Related to Chronic kidney disease, stage 3 unspecified Urinary Incontinence Dietary management e ducation, guidance, and counseling Related to Body mass index (BMI) 26.0-26.9, adult Fall Risk Prevention continue levothyroxine Related t o Acquired hypothyroidism try to do some regular walking R elated to Peripheral vascular disease continue good BP and lipid contr ol Related to Intracranial atherosclerosis continue current med ication and close monitoring Related to Hyperlipidemia, unspecified hyperlipidemia type This is a common fin ding on chest xray with mild plaque build up on the aorta. Continue to work on good blood pressure and cholesterol control to reduce cardiovascular risk. Related to Aortic atherosclerosis continue close monit oring with cardiology Related to Presence of Watchman left atrial appendage closure device continue current med s and close monitoringfollow up in 6 months - labs prior Related to Chronic kidney disease, stage 3 unspecified continue current med s and close monitoring with cardiology Related to Congestive heart failure, unspecified HF chronicity, unspecified heart failure type continue close monit oring with cardiology Related to Presence of cardiac pacemaker follow up if increased SOB Relat ed to Interstitial lung disease continue close monit oring with cardiology Related to Sick sinus syndrome continue close monit oringfollow up if increased SOB Related to Pulmonary fibrosis continue anoro Related to Pulmo nary emphysema, unspecified emphysema type Start donepezil- rev iewed possible SE'sContinue to assist with meal prep, medication monitoringcontinue to work on brain stimulating activities such as word search puzzles, card games, etc Related to Dementia in other diseases classified elsewhere, mild, without behavioral disturbance, psychotic disturbance, mood disturbance, and anxiety continue current med s and close monitoring Related to Hypertensive heart and chronic kidney disease with heart failure and stage 1 through stage 4 chronic kidney disease, or unspecified chronic kidney disease Start donepezil- rev iewed possible SE'sContinue to assist with meal prep, medication monitoringcontinue to work on brain stimulating activities such as word search puzzles, card games, etc Related to 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 Monitor for any signs of bleeding such as nose bleeds or bleeding gums and follow up if you notice any worsening or easy bleeding. Related to Nonthrombocytopenic purpura continue close monit oring and follow up if increased cough or shortness of breath Related to Bronchiectasis without complication continue omeprazole as needed Re lated to Gastroesophageal reflux disease, esophagitis presence not specified Continue to follow w ith chairman & ceo for close monitoring Related to Paroxysmal A-fib Followup with vascul ar surgeon for close monitoring Related to Carotid stenosis, bilateral continue current med s and follow up with cardiology as scheduled Related to Coronary artery disease involving [place] coronary artery of [place] heart with angina pectoris continue duloxetine Related to R ecurrent major depressive disorder, in partial remission Safety precautions Dietary management e ducation, guidance, and counseling Related to Body mass index (BMI) 27.0-27.9, adult continue close monit oring with cardiology Related to Presence of Watchman left atrial appendage closure device continue to try to d o some regular stretching and follow up if any worsening painYou can take Tylenol extra strength 500mg tab- 2 tabs 3 times daily as needed for pain Related to Pain in sacrum This is a common fin ding on the skin where the capillaries under the skin break open and cause a purplish discoloration of the skin commonly seen in areas where the skin is thinner such as on the forearms. Monitor for any signs of bleeding such as nose bleeds or bleeding gums and follow up if you notice any worsening or easy bleeding. Related to Nonthrombocytopenic purpura continue close monit oring and follow up if increased cough or shortness of breath Related to Bronchiectasis without complication continue omeprazole as needed Re lated to Gastroesophageal reflux disease, esophagitis presence not specified continue duloxetine Related to R ecurrent major depressive disorder, in partial remission Continue xareltofoll ow up with cardiology as scheduled Related to Coronary artery disease involving [place] coronary artery of [place] heart with angina pectoris We will notify you w hen your free T4 thyroid level is back to let you know if we need to adjust your levothyroxine dose Related to Low TSH level Continue current med icationsContinue to follow with chairman & ceo for close monitoring Related to Paroxysmal A-fib Followup with vascul ar surgeon for close monitoring Related to Carotid stenosis, bilateral Fall Risk Prevention Dietary management e ducation, guidance, and counseling Related to Body mass index (BMI) 26.0-26.9, adult Urinary Incontinence Immunizations Begin using Flonase dailyYou can also take Zyrtec daily Related to Ear pressure, bilateral Continue fenofibrate Keep good BP control Related to Aortic ectasia Monitor for symptoms and let us know if these occur Related to Urinary retention Followup with vascular surgeon R elated to Carotid stenosis, bilateral Continue fenofibrate Keep good BP control Related to Intracranial atherosclerosis This is mild volume loss of the brain commonly seen with age noted on a prior CT scan of the brain. Continue to monitor for any worsening memory problems and continue brain exercises such as word search puzzles, crossword puzzles, reading. Related to Cerebral atrophy Monitor for recurren ce of symptomsContinue to use walker at all times for now Related to Vertigo Continue to follow with cardiolo gist Related to Paroxysmal A-fib We will repeat imaging in one ye ar Related to Pulmonary nodules Dietary management e ducation, guidance, and counseling Related to Body mass index (BMI) 26.0-26.9, adult Followup with Dr Orin mitchell as they recommendMonitor for worsening chest pain or SOB Related to Paroxysmal atrial fibrillation continue current med sfollow up with cardiology as scheduled Related to Chronic diastolic (congestive) heart failure Continue to work on increasing exercise such as walking. Continue to limit salt intake. Monitor your home blood pressure. Call our office if blood pressure is consistently over 140/90 Related to Hypertensive heart and kidney disease with chronic diastolic congestive heart failure and stage 3a chronic kidney disease Continue good BP con trol and stay hydrated Related to Chronic kidney disease, stage 3a continue current med sfollow up with cardiology as scheduled Related to Chronic diastolic (congestive) heart failure continue current med sfollow up with chairman & ceo as scheduledfollow up here in 6 months- sooner if any worsening Related to Hypertensive heart and kidney disease with chronic diastolic congestive heart failure and stage 3a chronic kidney disease continue good BP con trolFollow up in 6 months- labs prior Related to Chronic kidney disease, stage 3a Check labs today Related to Anem ia, unspecified type Follow up as schedul ed for Watchman procedure next week with cardiology Related to Paroxysmal atrial fibrillation Follow up with cardi ology as scheduled for regular pacemaker monitoring Related to Presence of cardiac pacemaker Follow up with cardi ology as scheduled for regular pacemaker monitoring Related to Sick sinus syndrome continue close monit oringfollow up if increased shortness of breath Related to Interstitial lung disease continue close monit oringfollow up if any chest pain Related to Aortic ectasia This is a common fin ding on chest xray with mild plaque build up on the aorta. Continue to work on good blood pressure and cholesterol control to reduce cardiovascular risk. Related to Aortic atherosclerosis continue duloxetineS tatus: Able to self-manage condition. Goals: Your goal is to manage stress. Barriers: No barriers to goal achievement have been identified. 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 congestive heart failure and stage 3a chronic kidney disease Monitor breathing an d continue inhalers Related to Pulmonary emphysema, unspecified emphysema type continue close monit oring and follow up if increased cough or shortness of breath Related to Bronchiectasis without complication Xray of lumbosacral spine orderedtry to do some regular stretching exercises as instructed on the handout Related to Low back pain with radiation Call [facility] to schedule your mammogram and bone density Related to Routine medical exam continue levothyroxine Related t o Acquired hypothyroidism continue good BP con trolFollow up in 6 months- labs prior Related to Chronic kidney disease, stage 3a Continue xareltofoll ow up with cardiology as scheduled Related to Coronary artery disease involving [place] coronary artery of [place] heart with angina pectoris continue omeprazole as needed Re lated to Gastroesophageal reflux disease, esophagitis presence not specified Continue xareltofoll ow up with your chairman & ceo as scheduled and for your pacemaker later this week Related to Paroxysmal atrial fibrillation Continue fenofibrate Related to Hyperlipidemia, unspecified hyperlipidemia type Dietary management e ducation, guidance, and counseling Related to Body mass index (BMI) 28.0-28.9, adult continue good BP con trolFollow up in 6 months- labs prior Related to Chronic kidney disease, stage 3a continue current med sfollow up with chairman & ceo as scheduledfollow up here in 6 months- sooner if any worsening Related to Hypertensive 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 Avila for possible repeat upper and lower endoscopy Related to Anemia, unspecified type Refer to Dr. Cardoso, podiatry Re dony to Pain of toe of right foot Continue xareltofoll ow up with Dr. Mallory as scheduled next monthReport to ER if you experience any chest pain or pressure Related to Coronary artery disease involving [place] coronary artery of [place] heart with angina pectoris continue levothyroxine Related t o Acquired hypothyroidism continue omeprazole- reduce dose to 20mg daily Related to Gastroesophageal reflux disease, esophagitis presence not specified Schedule your screen ing mammogram and DEXA hip and spineCall back if you change your mind about getting the pneumococcal vaccine as recommended Related to Routine medical exam Continue xareltofoll ow up with your chairman & ceo as scheduled Related to Paroxysmal atrial fibrillation Continue fenofibrate Related to Hyperlipidemia, unspecified hyperlipidemia type Immunizations Fall Risk Prevention Dietary management e ducation, guidance, and counseling Related to Body mass index (BMI) 27.0-27.9, adult Urinary Incontinence Monitor for worsenin g shortness of breath, chest pain, leg swelling Related to Congestive heart failure, unspecified HF chronicity, unspecified heart failure type I will discuss with Dr Kennedy napoles to Pulmonary nodule Monitor breathing an d continue inhalers Related to Pulmonary emphysema, unspecified emphysema type We will check labs today Related to Chronic kidney disease, stage 3 unspecified Continue to work on increasing exercise such as walking. Continue to limit salt intake. Monitor your home blood pressure. Call our office if blood pressure is consistently over 140/90 Related to Hypertensive kidney disease with stage 3 chronic kidney disease, unspecified whether stage 3a or 3b CKD Continue eliquisKeep followup as scheduled Related to Paroxysmal atrial fibrillation Dietary management e ducation, guidance, and counseling Related to Body mass index (BMI) 28.0-28.9, adult continue omeprazole Related to G astroesophageal reflux disease, esophagitis presence not specified Refer to Dr. Ivan /Luther to evaluate for possible foreign body in right ear canal as it appears to be a small tip from a hearing aid possibly deep in the canal Related to Foreign body of right ear, initial encounter continue duloxetineS tatus: Able to self-manage condition. Goals: Your goal is to manage stress. Barriers: No barriers to goal achievement have been identified. Related to Recurrent major depressive disorder, in partial remission continue close monit oring and follow up if increased cough or shortness of breath Related to Bronchiectasis without complication Take your Anoro inha ler every dayStatus: Meeting treatment plan goals. Goals: Your goal is to maintain an active life. Barriers: No barriers to goal achievement have been identified. Related to Chronic obstructive pulmonary disease, unspecified COPD type continue close monit oringdrink plenty of fluids to stay hydrated Related to Chronic kidney disease, stage 3 unspecified continue regular wal kingfollow up if increased leg pain at rest or with walking Related to Peripheral vascular disease Continue Anoro Inhal er- 1 inhalation once daily Related to Pulmonary emphysema, unspecified emphysema type continue levothyroxine Related t o Acquired hypothyroidism mammogram and bone density order ed Related to Routine medical exam This is a common fin ding on chest xray with mild plaque build up on the aorta. Continue to work on good blood pressure and cholesterol control to reduce cardiovascular risk. Related to Aortic atherosclerosis continue low salt di et and regular walking Related to Hypertensive kidney disease with stage 3 chronic kidney disease, unspecified whether stage 3a or 3b CKD Continue to work on BP and lipid controlStatus: Meeting treatment plan goals. Goals: Your goal is to work on healthy eating habits. Barriers: No barriers to goal achievement have been identified. Related to Atherosclerosis of [place] coronary artery without angina pectoris, unspecified whether [place] or transplanted heart Continue fenofibrate 54mg once d aily Related to Hyperlipidemia, unspecified hyperlipidemia type Dietary management e ducation, guidance, and counseling Related to Body mass index (BMI) 28.0-28.9, adult Exercise Try to improve lipid controlkeep regular follow up with chairman & ceo Related to Aortic valve calcification Start fenofibrate 54 mg once dailycall immediately if any severe muscle pain or weaknesscheck labs in September prior to your next appt Related to Hyperlipidemia, unspecified hyperlipidemia type Increase duloxetine to 60mg in the morning and 30mg in the eveningWe will have a behavioral health interior plant caretakermanager motor you to discuss counseling services availableStatus: Able to self-manage condition. Goals: Your goal is to contact a counselor. Barriers: No barriers to goal achievement have been identified. 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 Goals: Your goal is to work on healthy eating habits. Barriers: No barriers to goal achievement have been identified. Related to Atherosclerosis of [place] coronary artery without angina pectoris, unspecified whether [place] or transplanted heart Start Anoro Inhaler- 1 inhalation once daily- 2 samples givenRx printed to refill if you tolerate this without problems. Related to Pulmonary emphysema, unspecified emphysema type Call back if you are interested in trying a different cholesterol medication to see if you tolerate it better. Related to Myalgia Urinary Incontinence Immunizations Fall Risk Prevention Dietary management e ducation, guidance, and counseling Related to Body mass index (BMI) 28.0-28.9, adult check LDL Related to Other and unspecified hyperlipidemia continue current med sCont. to work on increasing regular walking and cont. to limit salt intake. Monitor home BP's and call if BP consistently running above 140/90. Related to Essential hypertension refer to [employer] to evaluate double vision in right eye Related to Diplopia continue close monit oringfollow up if increased cough or shortness of breath Related to Pulmonary fibrosis Continue famotidine 20mg twice daily Cont. dietary modification and avoid foods that trigger GERD symptoms Related to Gastroesophageal reflux disease, esophagitis presence not specified continue close monit oringContinue dulerafollow up if increased cough or shortness of breath Related to Bronchiectasis without complication try to increase regu lar walkingfollow up if increased leg pain at rest or with walking Related to Peripheral vascular disease continue levothyroxi ne and we will check labs today Related to Acquired hypothyroidism Take your Dulera inh aler every dayStatus: Meeting treatment plan goals. Goals: Your goal is to maintain an active life. Barriers: No barriers to goal achievement have been identified. Related to Chronic obstructive pulmonary disease, unspecified COPD type continue duloxetineS tatus: Able to self-manage condition. Goals: Your goal is identify and build support systems. Barriers: No barriers to goal achievement have been identified. Related to Moderate major depression This is a common fin ding on chest xray with mild plaque build up on the aorta. Continue to work on good blood pressure and cholesterol control to reduce cardiovascular risk. Related to Aortic atherosclerosis continue toprol XL 2 5mg dailyReferral to [place] [facility] Related to Coronary artery disease involving coronary bypass graft of [place] heart with angina pectoris Immunizations Dietary management e ducation, guidance, and counseling Related to Body mass index (BMI) 28.0-28.9, adult Continue to follow with Dr Margarita barry to Esophageal stricture Monitor your symptom s and contact us if you have any worsening depression symptomsStatus: Able to self-manage condition. Goals: Your goal is identify and build support systems. Barriers: No barriers to goal achievement have been identified. Related to Moderate major depression ENCOURARE YOU TO GET YOUR FLU SHOT THIS FALLFollow-up in 6 months for routine apptSchedule your mammogram soon Recommend the new Shingrix vaccine- check with insurance to find out what your insurance coverage is for this and go to the pharmacy for administration if you wish to proceed with vaccination. Related to Routine medical exam Continue to follow w ith GI and take omeprazole as prescribed Related to Gastroesophageal reflux disease with esophagitis continue levothyroxi ne and we will check labs today Related to Acquired hypothyroidism Take your Dulera inh aler every dayStatus: Meeting treatment plan goals. Goals: Your goal is to maintain an active life. Barriers: No barriers to goal achievement have been identified. Related to Chronic obstructive pulmonary disease, unspecified COPD type Cont. to work on inc reasing regular walking and cont. to limit salt intake. Monitor home BP's and call if BP consistently running above 140/90. Related to Essential hypertension Urinary Incontinence Dietary management e ducation, guidance, and counseling Related to Body mass index (BMI) 29.0-29.9, adult Fall Risk Prevention try to increase regu lar walkingfollow up if increased leg pain at rest or with walking Related to Peripheral vascular disease Cont. to work on low fat diet and increase regular exercise with goal of walking at least 30 min. 3 to 5 times per week. Related to Other and unspecified hyperlipidemia continue toprol XL 2 5mg daily Cont. to work on increasing regular walking and cont. to limit salt intake. Monitor home BP's and call if BP consistently running above 140/90. Related to Essential hypertension continue close monit oringfollow up if increased cough or shortness of breath Related to Pulmonary fibrosis continue close monit oringfollow up if increased cough or shortness of breath Related to Bronchiectasis without complication Take your Dulera inh aler every dayStatus: Meeting treatment plan goals. Goals: Your goal is to maintain an active life. Barriers: No barriers to goal achievement have been identified. Related to Chronic obstructive pulmonary disease, unspecified COPD type This is a common fin ding on chest xray with mild plaque build up on the aorta. Continue to work on good blood pressure and cholesterol control to reduce cardiovascular risk. Related to Aortic atherosclerosis continue toprol XL 2 5mg dailyfollow up if any recurrent chest pain Related to Coronary artery disease involving coronary bypass graft of [place] heart with angina pectoris CT abd/pelvis with c tang orderedGrant Hospitalck labs today- we will notify you with results Related to Right lower quadrant abdominal pain Start famotidine (pe pcid) 20mg twice daily Cont. dietary modification and avoid foods that trigger GERD symptomsrefer to Dr. Avila for upper endoscopy Related to Gastroesophageal reflux disease, esophagitis presence not specified check urinalysis today Related t o Urinary frequency Start famotidine (pe pcid) 20mg twice daily Cont. dietary modification and avoid foods that trigger GERD symptomsrefer to Dr. Avila for upper endoscopy Related to Pharyngoesophageal dysphagia Dietary management e ducation, guidance, and counseling Related to Body mass index (BMI) 30.0-30.9, adult recheck CT chest in 1 year Relat ed to Pulmonary fibrosis check CT chest in 1 year Related to Bronchiectasis without complication xray of right elbow ordered- we will call you with results Related to Right elbow pain Recommend starting f aj oil supplement since you cannot tolerate any cholesterol lowering medicationCont. to work on low fat diet and increase regular exercise with goal of walking at least 30 min. 3 to 5 times per week. Related to Other and unspecified hyperlipidemia continue toprol XL 2 5mg dailyfollow up if any recurrent chest pain Related to Coronary artery disease involving coronary bypass graft of [place] heart with angina pectoris continue toprol XL 2 5mg daily Cont. to work on increasing regular walking and cont. to limit salt intake. Monitor home BP's and call if BP consistently running above 140/90. Related to Essential hypertension Giving encouragement to exercise Related to Body mass index (BMI) 30.0-30.9, adult Dietary management e ducation, guidance, and counseling Related to Body mass index (BMI) 30.0-30.9, adult recheck CT scan in Sept Related to Pulmonary nodule Start flagyl as pres cribedavoid alcohol while on med and for 1 to 2 days after completing medfollow up if no improvement or worsening Related to Bacterial vaginosis Cont. medication as prescribed.Cont. to work on low fat diet and increase regular exercise with goal of walking at least 30 min. 3 to 5 times per week. Related to Other and unspecified hyperlipidemia This is a common fin ding on chest xray with mild plaque build up on the aorta. Continue to work on good blood pressure and cholesterol control to reduce cardiovascular risk. Related to Aortic atherosclerosis Exercise Exercise Assessments Type Assessment Date No Information Patient Care Teams Name Effective Dates (start - stop) Status Members No Information
--- OUTSIDE RECORDS SUMMARY | 2024-11-22 23:37 | XMS_ITS | Clinical Summary ---
Author Organization [facility] Address [address] [place] [address] Care Team Providers Care Billing Collections Specialist Name Role Phone Rina Benavides MD Primary Care Provider [phone] Shea Mallory MD Unavailable [phone] Christian Delvalle MD Unavailable [phone] Allergies Active Allergy Reactions Criticality Noted Date [...] in situ 02/25/2023 Vertigo 02/06/2023 Atrial fibrillation ([facility]) 12/08/2022 Status cardiac pacemaker 11/12/2022 Overview (11/18/2022): RUEL JUAREZ PACEMAKER IMPLANTED 11/11/22 FOR SSS SSS (sick sinus syndrome) ([facility]) 10/28 Overview (11/18/2022): RUEL JUAREZ PACEMAKER IMPLANTED 11/11/22 FOR SSS Generalized weakness 11/06/2022 Symptomatic anemia 11/06/2022 Dilatation of aorta 11/06/2022 Interstitial lung disease ([facility]) 10/28 Hypertensive heart and kidney disease 04/28/2022 PAF (paroxysmal atrial fibrillation) ([facility] S/[facility]) 01/14/2022 History of tobacco use 01/14/2022 Overview (01/14/2022): for 33 years - quit 1989 for 33 years - quit 1989 Sensorineural hearing loss (SNHL) of both ears 0 11/03/2021 Foreign body in middle ear, right, initial encou nter 11/03/2021 Hypertensive heart and chron ic kidney disease stage 3 ([facility]) 04/22/2021 Mild aortic stenosis 12/16/2020 Moderate tricuspid regurgitation 12/16/2020 Gastro-esophageal reflux disease with esophagiti s 04/22/2020 S/P dilatation of esophageal stricture 0 Bronchiectasis ([facility]) 08/17/2019 Dermoid inclusion cyst 01/15/2015 Iron deficiency anemia 05/02/2012 Nutrition disorder 06/11/2011 Overview (01/14/2022): Failed swallow evaluation yesterday. Perform formal swallow evaluation today Failed swallow evaluation yesterday. Perform formal swallow evaluation today Depressive disorder 12/24/2010 DJD (degenerative joint disease) 12/24/2010 Diverticulosis 12/24/2010 Hypothyroidism Moderate major depression ([facility]) COPD (chronic obstructive pu lmonary disease) ([facility]) Aortic atherosclerosis CAD (coronary artery disease) PVD (peripheral vascular disease) Pulmonary fibrosis ([facility]) GERD (gastroesophageal reflux disease) Essential hypertension Dyslipidemia Resolved Problems Problem Noted Date Diagnosed Date Resolved Date Anemia 11/06/2022 11/06/2022 New onset atrial fibrillatio n ([facility]) 01/16/2022 03/18/2023 Encounters Date Type Department Care Team Description 11/15/2024 Travel 11/12/2024 2:10 PM METAL SPRAYER Allied Health/Nurse Visit [facility] [address] [place] [address] Shea Mallory MD Remote Device Check 10/10/2024 Telephone [facility] [address] [place] [address] Karen Armando, interactive media project manager 10/06/2024 Telephone [facility] [address] [place] [address] Yue Keys, A Referral 09/25/2024 Telephone [facility] [address] [place] [address] Jesús Couch MD Appointment Request from Last [...] declined 02/06/2023 How often do you attend pentecostalism or yarsanism serv ices? Patient declined 02/06/2023 Do you belong to any clubs o r organizations such as pentecostalism groups, unions, fraternal or athletic groups, or [...] medical care, and heating? Patient declined 02/06/2023 [facility] Occupat ional Health - Occupational Stress [...] place to sleep or slept in a skilled nursing (including now)? 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 Gender Identity Not on file Sexual Orientation [...] Cervantes RN Medical Devices Implanted Type Area Partition Assembly Machine Operator Device Identifier Shelf Expiration Date Model / Serial / Lot Watchman Flx 24mm Closure Device- 023 Implanted:Qty : 1 on 12/08/2022 by Francisco Young MD Closure Device Left: Atrium [employer] [id number] 08/17/2025 [id number] 240 / / [id number] Rv Lead Implant-2022 Implanted:Qty : 1 on 11/11/2022 by Christian Delvalle MD Lead Implant Right: Ventricle [employer] [id number] 06/23/2024 5076-52 / [id number] / Description:SEPTUM Ra Lead Implant-2022 Implanted:Qty : 1 on 11/11/2022 by Christian Delvalle MD Lead Implant Right: Atrium [employer] [id number] 08/25/2024 [id number] / [id number] / Description:APPENDAGE Dual Chamber Pacemaker (Medtronic)- Implanted:Qty : 1 on 11/11/2022 by Christian Delvalle MD Pacemaker Left: Chest [employer] [id number] 04/09/2024 [id number] / [id number] / Description:MRI conditional system per [employer] - 02/08/2023 Procedures Procedure Name Priority Date/Time Associated Diagnosis Comments LIPID PANEL Routine 02/06/2023 3:36 AM CDT from Last 3 Months or Most Recently Relevant to Health Maintenance Results * (ABNORMAL) LIPID PANEL (02/06/2023 3:36 AM CDT) CHOLESTEROL 216(H) <200 MG/DL 02/06/2023 6:19 AM CDT [facility] TRIGLYCERIDES 113 <150 MG/DL 02/06/2023 6:19 AM CDT [facility] HDL 72 >40.0 MG/DL 02/06/2023 6:19 AM CDT [facility] LDL (CALCULATED) 121(H) <100 MG/DL 02/06/2023 6:19 AM CDT [facility] NON HDL CHOLESTEROL 144(H) <130 MG/DL 02/06/2023 6:19 AM CDT [facility] CHOL/HDL RATIO 3.0 0.0 - 4.5 02/06/2023 6:19 AM CDT [facility] VLDL CALCULATION 23 5 - 55 MG/DL 02/06/2023 6:19 AM CDT [facility] LIPID INTERPRETATION 02/06/2023 6:19 AM CDT [facility] Comment: NIH CONCENSUS REPORT RECOMMENDATIONS: ADULT CHILD LOW RISK: CHOLESTEROL <200 <170 TRIGLYCERIDE <150 --- HDL >=60 --- LDL <100 <110 BORDERLINE: CHOLESTEROL 200-239 170-199 TRIGLYCERIDE 150-199 --- HDL 40-59 --- LDL 100-159 110-129 HIGH RISK: CHOLESTEROL >=240 >=200 TRIGLYCERIDE >=200 --- HDL <40 --- LDL >=160 >=130 02/06/2023 3:36 AM CDT Shanti Fair DO LABORATORY Final Result [facility] [address] [place] [address], from Last 3 Months or Most Recently Relevant to Health Maintenance Insurance [facility] Advance Directives Documents on File Type Date Recorded 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
--- OUTSIDE RECORDS SUMMARY | 2024-11-22 23:37 | XMS_ITS | Encounter Summary ---
Author Organization [facility] Address [address] [place] [address] Care Team Providers Care Bus And Sys Integration Senior Manager Name Role Phone Rina Benavides MD Primary Care Provider [phone] Micheline Ricadro MD Unavailable [phone] Shea Mallory MD Unavailable [phone] Christian Delvalle MD Unavailable [phone] Encounter Details Date Type Department Care Team (Late st Contact Info) Description 03/03/2022 Prep for Procedure [facility] [place], [place] [id number] Christian Delvalle MD [address] [facility] 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 [address] [place] [phone] (Work) Consulting Physician FAMILY PRACTICE 11/06/22 11/06/22 Shea Mallory MD [address] [address] Consulting Physician CARDIOVASCULAR DISEASE 12/04/22 Christian Delvalle MD [address] [address] Consulting Physician CLINICAL CARDIAC ELECTROPHYSIOLOGY 12/04/22 documented as of this encounter
[2024-11-22 23:49] VITALS: BP 129/58; PULSE 76; RESP 16; TEMP 36.4; O2SAT 96
[2024-11-23 02:35] VITALS: BP 122/71; PULSE 71; RESP 18; O2SAT 97
--- NOTE | 2024-11-23 02:35 | PC.NURSE ---
This RN called [facility] and updated about pt POC and arrival back to facility
[2024-11-23 02:37] VITALS: BP 122/71; PULSE 71; RESP 18; O2SAT 97
== END 2024-11-23 02:39 ==
PROVIDERS: Emergency Provider Physician Assistant
DX: S09.90XA Unspecified injury of head, initial encounter (principal); F03.90 Unspecified dementia, unspecified severity, without behavioral disturbance, psychotic disturbance, mood disturbance, and anxiety; Z87.891 Personal history of nicotine dependence; W19.XXXA Unspecified fall, initial encounter
CPT/HCPCS: 99283